=== PATIENT | male | born 1985 | race Caucasian/White ===

== ENCOUNTER 2023-09-13 13:30 | Outpatient (CLI) | payer MEDICARE, MEDICAID, SELFPAY | END 2023-09-13 13:31 | disposition home or self-care (01) | LOC: AMB 09-28 07:12 | PROVIDERS: PCP Family Medicine; Visit Provider Family Medicine | DX: J18.9 Pneumonia, unspecified organism (principal) | CPT/HCPCS: A0425; A0427; A0434 ==

== ENCOUNTER 2023-09-13 13:53 | Emergency (ER) | payer MEDICARE, MEDICAID, SELFPAY ==
[2023-09-13] VITALS (26 sets, daily range): BP systolic 84–128; BP diastolic 57–90; PULSE 83–100; RESP 12–28; TEMP 37–37.3; O2SAT 90–100; BMI 27.5
--- NOTE | 2023-09-13 14:04 | ED_ITS ---
HPI - General Adult General Time Seen by Provider: 14:04 Date Seen: 09/13/23 Chief complaint: Shortness of Breath/Dyspnea Stated complaint: Pneumonia Time Seen by Provider: 09/13/23 14:01 Source: patient, EMS and RN notes reviewed Mode of arrival: EMS History of Present Illness HPI narrative: Patient is a 38-year-old male from the [place] [facility] sent in by ambulance for coughing, hypoxia. EMS did bring him in, I was not present for EMS report but have reviewed nurse's notes and on and information obtained by EMS. Patient is not on chronic oxygen, was reported to be hypoxic. He is alert, not complaining of any baseline pain but when I do touch in he states it hurts wherever I touch him. Respiratory therapy is in evaluating when I am in. He is tachypneic, cheeks are flushed in he feels warm, have asked staff to recheck his temperature. Has a wet sounding cough. On review of his folder sent, he is full code. Active medications are adapalene gel for acne, b.i.d.. Benztropine 1 mg t.i.d. for drooling. Clotrimazole 1% cream b.i.d. to feet. Clozapine 250 mg at bedtime for psychosis. Clozapine 100 mg b.i.d. at 7:00 a.m. and 3:00 p.m. for pervasive behaviors. P.r.n. cough drops. Divalproex 250 mg at 3:30 p.m. for mood stability. Divalproex 5 mg, 2 tablets b.i.d. at 7:00 a.m. and 8:00 p.m. for mood stability. Fluticasone nasal spray daily. Guaifenesin p.r.n.. Haloperidol 5 mg b.i.d. p.r.n.. Ibuprofen p.r.n., loperamide p.r.n.. Loratadine 10 mg daily. Milk of magnesia p.r.n. mupirocin 2% ointment t.i.d. x5 days p.r.n.. MiraLax 17 g daily. Propranolol 40 mg t.i.d. for mood stability. Multivitamin daily. Related Data Home Medications Medication Instructions Recorded Confirmed benztropine 1 mg tablet 1 mg PO 08/04/22 08/04/22 clozapine 100 mg tablet 100 mg PO 08/04/22 08/04/22 clozapine 25 mg tablet 25 mg PO 08/04/22 08/04/22 divalproex 500 mg tablet,delayed mg PO 08/04/22 08/04/22 release fluticasone propionate 50 intranasal 08/04/22 08/04/22 mcg/actuation nasal spray,suspension propranolol 40 mg tablet 40 mg PO 08/04/22 08/04/22 clotrimazole 1 % topical cream 1 applic topical BID 09/13/23 09/13/23 (Antifungal (clotrimazole)) haloperidol 5 mg tablet 5 mg PO Q60M PRN 09/13/23 09/13/23 loratadine 10 mg tablet 10 mg PO DAILY 09/13/23 09/13/23 multivitamin with folic acid 400 1 tab PO DAILY 09/13/23 09/13/23 mcg tablet (Tab-A-Yosef) polyethylene glycol 3350 17 17 g PO DAILY 09/13/23 09/13/23 gram/dose oral powder Allergies Allergy/AdvReac Type Severity Reaction Status Date / Time tramadol Allergy Unknown Verified 09/13/23 17:23 Review of Systems Status of ROS: Reports: unobtainable due to medical condition and unobtainable due to mental status PFSH [facility] Social History Smoking Status: Never smoker How often do you have a drink containing alcohol: never AUDIT-C Alcohol total score: 0 Non-prescribed substance use: denies use Exam Const: Vital Signs, click to edit/add: Vital Signs - 24 hr 09/13/23 13:59 09/13/23 14:09 09/13/23 14:09 Temperature 98.6 F Pulse Rate Pulse Rate [Pulse Oximeter] 99 Respiratory Rate 28 H Blood Pressure Blood Pressure [Ri ght Upper Arm] 128/66 Pulse Oximetry 93 92 92 Oxygen Delivery Me thod Nasal Cannula Nasal Cannula Oxygen Flow Rate 4 4 Fraction of Inspir ed Oxygen 09/13/23 14:40 09/13/23 14:41 09/13/23 14:42 Temperature 99.2 F Pulse Rate 96 94 Pulse Rate [Pulse Oximeter] Respiratory Rate Blood Pressure 103/65 Blood Pressure [Ri ght Upper Arm] Pulse Oximetry 95 95 Oxygen Delivery Me thod Oxygen Flow Rate Fraction of Inspir ed Oxygen 09/13/23 14:45 09/13/23 15:00 09/13/23 15:00 Temperature Pulse Rate 95 95 Pulse Rate [Pulse Oximeter] Respiratory Rate Blood Pressure Blood Pressure [Ri ght Upper Arm] Pulse Oximetry 96 97 97 Oxygen Delivery Me thod High Flow Nasal Ca nnula Oxygen Flow Rate 15 Fraction of Inspir ed Oxygen 09/13/23 15:03 09/13/23 15:15 09/13/23 15:30 Temperature Pulse Rate 94 94 95 Pulse Rate [Pulse Oximeter] Respiratory Rate Blood Pressure Blood Pressure [Ri ght Upper Arm] Pulse Oximetry 97 97 96 Oxygen Delivery Me thod Oxygen Flow Rate Fraction of Inspir ed Oxygen 09/13/23 15:32 09/13/23 15:43 09/13/23 15:45 Temperature Pulse Rate 93 93 Pulse Rate [Pulse Oximeter] Respiratory Rate Blood Pressure 117/87 Blood Pressure [Ri ght Upper Arm] Pulse Oximetry 97 98 Oxygen Delivery Me thod Oxygen Flow Rate 15 Fraction of Inspir ed Oxygen 45 09/13/23 16:00 09/13/23 16:01 09/13/23 16:15 Temperature Pulse Rate 92 94 93 Pulse Rate [Pulse Oximeter] Respiratory Rate Blood Pressure 110/85 Blood Pressure [Ri ght Upper Arm] Pulse Oximetry 98 98 98 Oxygen Delivery Me thod Oxygen Flow Rate Fraction of Inspir ed Oxygen 09/13/23 16:30 09/13/23 16:32 09/13/23 16:45 Temperature Pulse Rate 94 96 100 Pulse Rate [Pulse Oximeter] Respiratory Rate Blood Pressure 113/90 H Blood Pressure [Ri ght Upper Arm] Pulse Oximetry 98 98 100 Oxygen Delivery Me thod Oxygen Flow Rate Fraction of Inspir ed Oxygen 09/13/23 16:46 09/13/23 16:52 09/13/23 16:53 Temperature Pulse Rate 93 84 83 Pulse Rate [Pulse Oximeter] Respiratory Rate Blood Pressure 96/57 L 84/59 L Blood Pressure [Ri ght Upper Arm] Pulse Oximetry 90 99 99 Oxygen Delivery Me thod Oxygen Flow Rate Fraction of Inspir ed Oxygen 09/13/23 17:25 09/13/23 17:26 09/13/23 17:27 Temperature Pulse Rate 83 85 Pulse Rate [Pulse Oximeter] Respiratory Rate Blood Pressure 93/59 L 90/59 L Blood Pressure [Ri ght Upper Arm] Pulse Oximetry 98 98 Oxygen Delivery Me thod Oxygen Flow Rate Fraction of Inspir ed Oxygen 09/13/23 17:30 Temperature Pulse Rate 84 Pulse Rate [Pulse Oximeter] Respiratory Rate Blood Pressure Blood Pressure [Ri ght Upper Arm] Pulse Oximetry 97 Oxygen Delivery Me thod Oxygen Flow Rate Fraction of Inspir ed Oxygen Patient is seen and looks flush, does attempt to talk to me, has a wet sounding cough quite frequently. Is very tachypneic, have estimated his respiratory rate by counting to be about 60 breaths per minute. Cheeks flushed, admit temperature was afebrile but will last staff to recheck. Mouth looks dry, no traumatic change. Neck without any masses. He has right sided rhonchi, left side normal. CV regular, no murmur, normal S1-S2, no S3-S4. Abdomen is soft right now, no organomegaly. No lower extremity edema noted. Skin elsewhere that was visualized without rash. Documenting provider has reviewed patient's vital signs: yes Course Course ED Course: Patient obviously has respiratory infection. He is newly hypoxic, is full code. Respiratory therapy is evaluating. He is on 4 L nasal cannula oxygen right now. Need to get a chest x-ray in full complement of labs. Nursing staff has collected the triple viral swab. He has had a history of pneumonia and pleural effusion before. Obviously concern here is for infectious respiratory infection, need to consider bacterial pneumonia, viral pathogens such as COVID and influenza, RSV. He is not in immediate need of intubation but with the hypoxia and his tachypnea, he will need to be monitored closely. Will initiate a L of IV fluids. Reevaluation(s) Time of Reevaluation #1: 14:51 Reevaluation #1: Reviewed patient's chest x-ray, do see pneumonia. Have reviewed his EKG, no prolonged QT interval. Will initiate 2 g IV Rocephin 5 her mg IV is a through my sin, believe all as lab work to be completed including blood cultures. Respiratory therapy is back to assist in airway management. Time of Reevaluation #2: 16:55 Reevaluation #2: Intubation has been completed. Please see anesthesia's note, did have them come assist. He indeed had a more difficult airway, had more crowding of his teeth, anterior airway. [place] scope was used. There were no complications. Post intubation he did get 100 mg IV ketamine to keep him completely sedated while he went to have his chest CT PE protocol. Respiratory therapy went with to assist in ventilation. A ketamine drip was started at 2 milligrams/kilos per hour. He is receiving a therapeutic dose of Lovenox, 80 mg IM. He will be transferred after his chest CT. He did have bilateral breath sounds, maintained oxygenation. He has been accepted by Dr. Akua Christy but actually spoke with Fer from the facility. They are aware that patient was being intubated. After the chest CT PE protocol is done, this physician has requested we transfer, EMS is awaiting transfer. Time of Reevaluation #3: 17:08 Reevaluation #3: Nursing staff called from CT, patient is waking up a bit. Will Re bolus with 100 mg IV ketamine again. Pharmacy is going over with the orders for titration of ketamine which is being used for post intubation management. Consultations Consultation #1: Did speak with Fer at [facility], reviewed the case. Did check on patient well she was on the phone, he is still quite tachypneic, using paradoxical abdominal breathing, still respiratory rate of 60s. He will be unit there. We are waiting a chest CT PE protocol and she and I have discussed that we will await for the full reading to come back before transfer as we might act on giving him no anticoagulants if positive. I did speak to someone from [place] as well but talked to [place] for full acceptance, likely closer as well. This is the only bed availability. Staff checked with [place], [place], [place], [place], [place], with seek a, laxity, no bed availability. There are no beds at [facility] or [facility] with regions are [facility]. They were 22 patient is on the wait list in the [facility] system. After the phone conversation, spoke with respiratory therapy and re-evaluated the patient. He has some mild wheezing in his right upper lobe, is very tachypneic, using paradoxical abdominal movement. He is on 45% oxygen, 15 L, the high-flow oxygen is not really helping him at all, he is oxygenating quite well in upper 90s with this. I have spoken to his POA whom is here, have discussed intubation. Would it went over risks and benefits. Both respiratory therapy and myself do feel that he needs intubation for impending respiratory demise. His work of breathing is not improving. Time: 16:20 Vital Signs Vital signs: Initial Vital Signs Temperature 98.6 F 09/13/23 13:59 Temperature Source Temporal Artery Scan 09/13/23 13:59 Pulse Rate 99 09/13/23 13:59 Pulse Rhythm Regular 09/13/23 13:59 Respiratory Rate 28 H 09/13/23 13:59 Blood Pressure 128/66 09/13/23 13:59 Blood Pressure Mean 86 09/13/23 13:59 Blood Pressure Position Sitting 09/13/23 13:59 Pulse Oximetry 93 09/13/23 13:59 Oxygen Delivery Method Nasal Cannula 09/13/23 13:59 Oxygen Flow Rate 4 09/13/23 13:59 Vital Signs Temperature 98.6 F 09/13/23 13:59 Pulse Rate 99 09/13/23 13:59 Respiratory Rate 28 H 09/13/23 13:59 Blood Pressure 128/66 09/13/23 13:59 Pulse Oximetry 93 09/13/23 13:59 Oxygen Delivery Method Nasal Cannula 09/13/23 13:59 Oxygen Flow Rate 4 09/13/23 13:59 Temperature 99.2 F 09/13/23 14:40 Pulse Rate 84 09/13/23 17:30 Respiratory Rate 28 H 09/13/23 13:59 Blood Pressure 90/59 L 09/13/23 17:26 Pulse Oximetry 97 09/13/23 17:30 Oxygen Delivery Method High Flow Nasal Cannula 09/13/23 15:00 Oxygen Flow Rate 15 09/13/23 15:43 Fraction of Inspired Oxygen 45 09/13/23 15:43 Medications Administered Medications: Generic Name Dose Route Start Last Admin Trade Name Freq PRN Reason Stop Dose Admin Ketamine HCl 500 mg/ Sodium 505 mls @ 71.01 mls/hr 09/13/23 17:45 09/13/23 16:49 Chloride IVPB 2 mg/kg/hr .TITRATE LEEANN 142.02 mls/hr Titration Protocol 1 MG/KG/HR Discontinued Medications Generic Name Dose Route Start Last Admin Trade Name Freq PRN Reason Stop Dose Admin Albuterol/Ipratropium 1 neb 09/13/23 16:30 09/13/23 17:46 Iprat-Albut 0.5-2.5 Mg/3 Ml Neb IH 09/13/23 16:31 Not Given ONCE ONE Dexamethasone 10 mg 09/13/23 16:30 09/13/23 17:45 Dexamethasone 10 Mg/Ml Inj IVP 09/13/23 16:31 Not Given ONCE ONE Enoxaparin Sodium 80 mg 09/13/23 16:37 09/13/23 17:28 Enoxaparin 80 Mg/0.8 Ml Inj SUBCUT 09/13/23 16:38 80 mg ONCE ONE Administration Fentanyl 50 mcg 09/13/23 17:46 09/13/23 16:45 Fentanyl 100 Mcg/2 Ml Inj IVP 09/13/23 17:47 50 mcg ONCE ONE Administration Sodium Chloride 1,000 mls @ 500 mls/hr 09/13/23 14:10 09/13/23 16:55 0.9 % Sodium Chloride 1000 Ml IV 09/13/23 16:09 0 mls/hr .Q2H LEEANN Infusion Ceftriaxone Sodium 2 gm/ 100 mls @ 200 mls/hr 09/13/23 14:50 09/13/23 15:50 Sodium Chloride IVPB 09/13/23 14:51 Infused ONCE ONE Infusion Azithromycin 500 mg/ Sodium 255 mls @ 255 mls/hr 09/13/23 14:50 09/13/23 16:55 Chloride IVPB 09/13/23 14:51 255 mls/hr ONCE ONE Infusion Piperacillin Sod/Tazobactam 100 mls @ 200 mls/hr 09/13/23 16:17 09/13/23 17:46 Sod 3.375 gm/ Sodium Chloride IVPB 09/13/23 16:18 200 mls/hr ONCE ONE Administration Ketamine HCl 100 mg 09/13/23 17:07 09/13/23 17:10 Ketamine Hcl 100 Mg/Ml Inj IVP 09/13/23 17:08 100 mg ONCE ONE Administration Ketamine HCl 100 mg 09/13/23 17:44 09/13/23 16:51 Ketamine Hcl 100 Mg/Ml Inj IVP 09/13/23 17:45 100 mg ONCE ONE Administration Midazolam HCl 2 mg 09/13/23 17:44 09/13/23 17:15 Midazolam Hcl 1 Mg/Ml Inj IVP 09/13/23 17:45 2 mg ONCE ONE Administration Propofol 150 mg 09/13/23 17:46 09/13/23 16:45 Propofol 10 Mg/Ml Inj IVP 09/13/23 17:47 150 mg ONCE ONE Administration Succinylcholine Chloride 100 mg 09/13/23 17:46 09/13/23 16:45 Succinylcholine 20 Mg/Ml Inj IVP 09/13/23 17:47 100 mg ONCE ONE Administration Medical Decision Making Lab Data Lab results reviewed: Yes I reviewed the patient's lab results Labs: Lab Results 09/13/23 09/13/23 Range/Units 13:54 14:35 WBC 11.14 H (4.50-11.00) K/uL RBC 4.72 (4.30-5.90) m/uL Hgb 14.9 (13.5-17.5) gm/dL Hct 44.7 (37.0-53.0) % MCV 95 (80-100) fL MCH 32 (26-34) pg MCHC 33 (32-36) gm/dL RDW Coeff of Laci 12.6 (11.5-15.5) % Plt Count 135 L (140-440) K/uL Neut % (Auto) 75.7 H (42.0-72.0) % Lymph % (Auto) 9.8 L (20-44) % [place] % (Auto) 12.7 H (0.0-11.0) % Eos % (Auto) 0.0 (0.0-7.0) % Baso % (Auto) 0.1 (0.0-3.0) % Neut # (Auto) 8.40 H (1.7-7.0) K/uL Lymph # (Auto) 1.10 (0.90-2.90) K/uL [place] # (Auto) 1.40 H (0.00-0.90) K/UL Eos # (Auto) 0.00 (0.00-0.50) K/uL Baso # (Auto) 0.00 (0.00-0.30) K/uL Abs Immat Gran (auto) 0.20 (0.00-0.30) K/uL Imm/Tot Granulo (auto) 1.7 % D-Dimer Quant (PE/DVT) 1.21 H (0.00-0.50) ug/ml VBG pH 7.377 (7.32-7.43) VBG pCO2 49 (40-50) mmHG VBG pO2 42.8 (25-47) mmHG VBG HCO3 29 H (21-28) mmol/L Sodium 145 (135-149) mmol/L Potassium 4.3 (3.6-5.1) mmol/L Chloride 106 (96-114) mmol/L Carbon Dioxide 27 (20-32) mmol/L Anion Gap 12 (7-15) mEq/L BUN 32 H (5-24) mg/dL Creatinine 1.0 (0.5-1.5) mg/dL Estimated Creat Clear 82.19 Estimated GFR 100 ml/min Glucose 122 H (60-115) mg/dL Calcium 9.6 (8.4-10.6) mg/dL Total Bilirubin 0.7 (0.1-1.5) mg/dL AST 43 H (12-35) U/L ALT 28 (4-50) U/L Alkaline Phosphatase 74 (40-150) U/L Troponin I < 0.01 L (0.01-0.04) ng/mL C-Reactive Protein 37.1 H (0.5-1.0) mg/dL Total Protein 7.4 (6.0-8.3) g/dL Albumin 4.2 (3.3-5.0) g/dL Procalcitonin 16.40 H (<0.50) ng/mL SARS-CoV-2 (PCR) Negative SARS-CoV-2 (Negative) Influenza Type A (PCR) Negative PCR FLU A (Negative) Influenza Type B (PCR) Negative PCR FLU B (Negative) RSV (PCR) POSITIVE PCR RSV A (Negative) Imaging Data Chest x-ray: Attestation: I have reviewed the pertinent imaging results. Radiologist's impression: Patient: MIR STEWART Facility:?[facility] Patient ID:?[id number] Site Patient ID:?[id number]. Site :?[id number] Study:?XRay Chest 1V PORTABLE-09/13/2023 2:24:57 PM Ordering Physician:Wale Kilpatrick Final Report: Indication: Cough, hypoxia Technique: Chest 1 view Comparison: Chest x-ray 10/02/2016 Findings/Impression: Cardiovascular and mediastinum: Heart size and vasculature are normal in caliber and appearance. Lungs and pleural space: Low lung volumes without pleural effusion or pneumothorax. Patchy opacities throughout the right lung consistent with pneumonia. Bones and soft tissues: No acute findings. Dictated by Randolph Marmolejo MD @ 09/13/2023 2:37:53 PM (Electronic Signature) CT scan - chest: Attestation: I have reviewed the pertinent imaging results. Radiologist's impression: Patient: MIR STEWART Facility:?[facility] Patient ID:?[id number] Site Patient ID:?[id number]. Site :?[id number] Study:?CT Chest Angio w/ 95cc Rertrc-754-0/10/2024 5:27:08 PM Ordering Physician:Wale Kilpatrick Final Report: INDICATION: Shortness of breath. TECHNIQUE: CT Pulmonary Angiogram examination was performed after the administration of 95 mL Isovue 370 contrast intravenously. COMPARISON: Same-day chest radiograph. FINDINGS: Lower neck: Visualized thyroid is unremarkable. Cardiovascular: Contrast opacification of the pulmonary arterial tree is adequate. Thoracic aorta is normal in caliber. Pulmonary artery is normal in caliber. No pulmonary embolus. No significant atherosclerotic calcifications. Heart size is normal. No right heart strain. No significant coronary arterial calcifications. Lungs: Patching focal consolidation along the right upper, middle and lower lobes. Indeterminate focus of masslike consolidation involving the right lung apex measuring 1.5 cm. Airways: Endotracheal tube in place. Aspirated debris layering within the trachea. Moderate peribronchial wall thickening with scattered mucoid impaction in the bilateral lower lobes. Pleura: No pleural effusions or pneumothorax. Lymph nodes: No mediastinal, hilar, or axillary adenopathy. Chest wall: Normal. Upper abdomen: Patulous esophagus with air-fluid level compatible with reflux. Visualized portions unremarkable. Bones: No acute osseous abnormalities. IMPRESSION: 1. Findings compatible with multifocal pneumonia. Query underlying aspiration pneumonia given the aspirated debris within the trachea and patulous esophagus. 2. There is a focus of masslike consolidation involving the right lung apex measuring 1.5 cm, cannot exclude a underlying neoplasm. Repeat CT upon resolution of symptoms in 6-8 weeks is advised to assess stability or improvement. 3. No pulmonary embolus. No CT evidence of right heart strain. Please note that all CT scans at this facility use dose modulation, iterative reconstruction, and/or weight-based dosing when appropriate to reduce radiation dose to as low as reasonably achievable. Dictated by Hector Brown MD @ 09/13/2023 6:05:14 PM (Electronic Signature) ECG Data Attestation: I personally reviewed and interpreted this ECG as follows: (Sinus rhythm, 97 beats per minute. Underlying artifact. QT corrected 406 milliseconds.) Prior ECG tracings: not available for review Critical Care Time Critical Care Time Critical Care Time: Yes Attestation: The patient required my highest level preparedness to intervene emergently and I personally spent this critical care time directly and personally managing the patient. This critical care time included: Obtaining a history; Examining the patient; Pulse oximetry; Ordering and reviewing of studies; Arranging urgent treatment with development of a management plan; Evaluation of patients response to treatment; Frequent reassessment discussions with other providers. This critical care time was performed to assess and manage the high probability of imminent life-threatening deterioration that could result in multiorgan failure. It was exclusive of separate billable procedures and treating other patients and teaching time. Total Critical Care Time in Minutes: 90 Discharge Plan Discharge Clinical Impression: Respiratory failure requiring intubation, Respiratory syncytial virus (RSV) Community acquired pneumonia Qualifiers: Laterality: right Patient Disposition: [facility]
--- NOTE | 2023-09-13 14:08 | CRLHL7_ITS ---
For Patients: As a result of the Century Cures Act, medical imaging exams and procedure reports are released immediately into your electronic medical record. You may view this report before your referring provider. If you have questions, please contact your health care provider. Indication: Cough, hypoxia Technique: Chest 1 view Comparison: Chest x-ray 10/02/2016 Findings/Impression: Cardiovascular and mediastinum: Heart size and vasculature are normal in caliber and appearance. Lungs and pleural space: Low lung volumes without pleural effusion or pneumothorax. Patchy opacities throughout the right lung consistent with pneumonia. Bones and soft tissues: No acute findings. Dictated by Randolph Marmolejo MD @ 09/13/2023 2:37:53 PM (Electronically Signed)
--- NOTE | 2023-09-13 14:11 | RESP.RT ---
Pt. seen in ED. RR 60 Spo2 94% on 3L BBS with crackles in RLL. Awaiting CXR, Labs. Suspect I will start HFNC.
[2023-09-13 14:40] LABS: PCR FLU A Negative PCR FLU A (Negative); PCR FLU B Negative PCR FLU B (Negative); PCR RSV POSITIVE PCR RSV (Negative); SARS PCR* Negative SARS-CoV-2 (Negative)
[2023-09-13 14:42] LABS: HCO3 VBG 29 mmol/L (21-28); PCO2 VBG 49 mmHG (40-50); PO2 VBG 42.8 mmHG (25-47); pH VBG 7.377 (7.32-7.43)
[2023-09-13 14:46] LABS: Basophils Percent Auto 0.1 % (0.0-3.0); Hematocrit 44.7 % (37.0-53.0); Hemoglobin* 14.9 gm/dL (13.5-17.5); Immature Granulocytes Pct Auto 1.7 %; Lymphocytes Percent Auto 9.8 % (20-44); Mean Corpuscular HGB Conc 33 gm/dL (32-36); Mean Corpuscular Hemoglobin 32 pg (26-34); Mean Corpuscular Volume 95 fL (80-100); Monocytes Percent Auto 12.7 % (0.0-11.0); Neutrophils Percent Auto 75.7 % (42.0-72.0); Platelet Count* 135 K/uL (140-440); RDW Coefficient of Variation % 12.6 % (11.5-15.5); Red Blood Count 4.72 m/uL (4.30-5.90); White Blood Count* 11.14 K/uL (4.50-11.00)
[2023-09-13 15:02] LABS: Slide Review Reflex No
[2023-09-13 15:10] LABS: Albumin* 4.2 g/dL (3.3-5.0); Chloride* 106 mmol/L (96-114)
[2023-09-13 15:11] LABS: Potassium* 4.3 mmol/L (3.6-5.1); Sodium* 145 mmol/L (135-149)
[2023-09-13 15:13] LABS: Anion Gap 12 mEq/L (7-15); Aspartate Amino Transferase* 43 U/L (12-35); Bilirubin Total* 0.7 mg/dL (0.1-1.5); Carbon Dioxide* 27 mmol/L (20-32); Est. Creatinine Clearance* 82.19; Estimated Glomerular Filt Rate 100 ml/min; Total Protein* 7.4 g/dL (6.0-8.3)
[2023-09-13 15:14] LABS: Alanine Aminotransferase* 28 U/L (4-50); Blood Urea Nitrogen* 32 mg/dL (5-24); Calcium* 9.6 mg/dL (8.4-10.6); Glucose* 122 mg/dL (60-115)
[2023-09-13 15:16] LABS: D Dimer Quantitative* 1.21 ug/ml (0.00-0.50)
[2023-09-13] MEDS: cefTRIAXone 2 GM in 0.9 % SODIUM CHLORIDE Mini-bag 100 ML IVPB (15:20)
[2023-09-13] MEDS: 0.9 % SODIUM CHLORIDE 1000 ml 1,000 ML 500 ML IV (15:20)
[2023-09-13 15:54] LABS: Troponin I* < 0.01 ng/mL (0.01-0.04)
[2023-09-13 16:07] LABS: Alkaline Phosphatase* 74 U/L (40-150); C Reactive Protein* 37.1 mg/dL (0.5-1.0)
--- NOTE | 2023-09-13 16:10 | CRLHL7_ITS ---
For Patients: As a result of the Century Cures Act, medical imaging exams and procedure reports are released immediately into your electronic medical record. You may view this report before your referring provider. If you have questions, please contact your health care provider. INDICATION: Shortness of breath. TECHNIQUE: CT Pulmonary Angiogram examination was performed after the administration of 95 mL Isovue 370 contrast intravenously. COMPARISON: Same-day chest radiograph. FINDINGS: Lower neck: Visualized thyroid is unremarkable. Cardiovascular: Contrast opacification of the pulmonary arterial tree is adequate. Thoracic aorta is normal in caliber. Pulmonary artery is normal in caliber. No pulmonary embolus. No significant atherosclerotic calcifications. Heart size is normal. No right heart strain. No significant coronary arterial calcifications. Lungs: Patching focal consolidation along the right upper, middle and lower lobes. Indeterminate focus of masslike consolidation involving the right lung apex measuring 1.5 cm. Airways: Endotracheal tube in place. Aspirated debris layering within the trachea. Moderate peribronchial wall thickening with scattered mucoid impaction in the bilateral lower lobes. Pleura: No pleural effusions or pneumothorax. Lymph nodes: No mediastinal, hilar, or axillary adenopathy. Chest wall: Normal. Upper abdomen: Patulous esophagus with air-fluid level compatible with reflux. Visualized portions unremarkable. Bones: No acute osseous abnormalities. IMPRESSION: 1. Findings compatible with multifocal pneumonia. Query underlying aspiration pneumonia given the aspirated debris within the trachea and patulous esophagus. 2. There is a focus of masslike consolidation involving the right lung apex measuring 1.5 cm, cannot exclude a underlying neoplasm. Repeat CT upon resolution of symptoms in 6-8 weeks is advised to assess stability or improvement. 3. No pulmonary embolus. No CT evidence of right heart strain. Please note that all CT scans at this facility use dose modulation, iterative reconstruction, and/or weight-based dosing when appropriate to reduce radiation dose to as low as reasonably achievable. Dictated by Hector Brown MD @ 09/13/2023 6:05:14 PM (Electronically Signed)
[2023-09-13] MEDS: AZITHROMYCIN 500 MG in 0.9 % SODIUM CHLORIDE 250 ml 250 ML 255 MG IVPB (16:23)
[2023-09-13] MEDS: fentaNYL 100 MCG/2 ML inj 50 MCG IVP (16:45)
[2023-09-13] MEDS: SUCCINYLCHOLINE 20 MG/ML INJ 100 MG IVP (16:45)
[2023-09-13] MEDS: PROPOFOL 10 MG/ML INJ 150 MG IVP (16:45)
[2023-09-13] MEDS: KETAMINE HCL 500 MG in 0.9 % SODIUM CHLORIDE 500 ML 500 ML 71.01 MG IVPB (16:48)
[2023-09-13] MEDS: KETAMINE HCL 100 MG/ML inj IVP ×2 (16:51→17:10)
--- NOTE | 2023-09-13 16:58 | ED.NURSE ---
Patient intubated at 16:47 size 7.0. Measures 21 at the incisors. See vitals tab for details. 16:45 50 mcg fentanyl, 150 mg propofol, 100 mg succ 16:47 Successful intubation 16:51 100 mg ketamine bolus 16:52 2 mg/kilo/hr ketamine drip started 16:[address] RT present and bagging patient.
--- NOTE | 2023-09-13 17:00 | PM.ANBPRC ---
PFSH PFS Social History Smoking Status: Never smoker How often do you have a drink containing alcohol: never AUDIT-C Alcohol total score: 0 Non-prescribed substance use: denies use Meds Home Medications and Allergies Home Medications Medication Instructions Recorded Confirmed Type benztropine 1 mg tablet 1 mg PO 08/04/22 08/04/22 History clozapine 100 mg tablet 100 mg PO 08/04/22 08/04/22 History clozapine 25 mg tablet 25 mg PO 08/04/22 08/04/22 History divalproex 500 mg tablet,delayed mg PO 08/04/22 08/04/22 History release fluticasone propionate 50 intranasal 08/04/22 08/04/22 History mcg/actuation nasal spray,suspension propranolol 40 mg tablet 40 mg PO 08/04/22 08/04/22 History clotrimazole 1 % topical cream 1 applic topical BID 09/13/23 09/13/23 History (Antifungal (clotrimazole)) haloperidol 5 mg tablet 5 mg PO Q60M PRN 09/13/23 09/13/23 History loratadine 10 mg tablet 10 mg PO DAILY 09/13/23 09/13/23 History multivitamin with folic acid 400 1 tab PO DAILY 09/13/23 09/13/23 History mcg tablet (Tab-A-Yosef) polyethylene glycol 3350 17 17 g PO DAILY 09/13/23 09/13/23 History gram/dose oral powder Allergies Allergy/AdvReac Type Severity Reaction Status Date / Time tramadol Allergy Unknown Verified 09/13/23 13:59 Results Labs Labs: Laboratory Results - last 24 hr 09/13/23 09/13/23 13:54 14:35 WBC 11.14 H RBC 4.72 Hgb 14.9 Hct 44.7 MCV 95 MCH 32 MCHC 33 RDW Coeff of Laci 12.6 Plt Count 135 L Neut % (Auto) 75.7 H Lymph % (Auto) 9.8 L [place] % (Auto) 12.7 H Eos % (Auto) 0.0 Baso % (Auto) 0.1 Neut # (Auto) 8.40 H Lymph # (Auto) 1.10 [place] # (Auto) 1.40 H Eos # (Auto) 0.00 Baso # (Auto) 0.00 Abs Immat Gran (auto) 0.20 Imm/Tot Granulo (auto) 1.7 D-Dimer Quant (PE/DVT) 1.21 H VBG pH 7.377 VBG pCO2 49 VBG pO2 42.8 VBG HCO3 29 H Sodium 145 Potassium 4.3 Chloride 106 Carbon Dioxide 27 Anion Gap 12 BUN 32 H Creatinine 1.0 Estimated Creat Clear 82.19 Estimated GFR 100 Glucose 122 H Calcium 9.6 Total Bilirubin 0.7 AST 43 H ALT 28 Alkaline Phosphatase 74 Troponin I < 0.01 L C-Reactive Protein 37.1 H Total Protein 7.4 Albumin 4.2 Procalcitonin 16.40 H SARS-CoV-2 (PCR) Negative SARS-CoV-2 Influenza Type A (PCR) Negative PCR FLU A Influenza Type B (PCR) Negative PCR FLU B RSV (PCR) POSITIVE PCR RSV A Vital Signs Vital Signs: Last Vital Signs Temp 99.2 F 09/13/23 14:40 Pulse 84 09/13/23 16:52 Resp 28 H 09/13/23 13:59 BP 84/59 L 09/13/23 16:52 Pulse Ox 99 09/13/23 16:52 O2 Del Method High Flow Nasal Cannula 09/13/23 15:00 O2 Flow Rate 15 09/13/23 15:43 FiO2 45 09/13/23 15:43 Weight: 70.307 kg Height: 160.02 cm Anesthesia Procedures Airway Patient Location: ED Urgency: emergent Date: 09/13/23 Time: 16:30 VISUAL MERCHANDISING ASSOCIATE: Govind Performed by: LYNN Preanesthetic Checklist: IV checked and monitors and equipment checked Indications for Airway Management: hypoxemia and respiratory failure Spontaneous Ventilation: present Preoxygenated: Yes Patient Position: other (supine) Mask Difficulty Assessment: 1 - vent by mask Final Airway Details: 7.0 oral ETT placed via Glidescope #3 head. 1 attempt, atraumatic. difficulty 3. 21cm at incisors secured with tube tamer. easy BMV. positive BBS and ETCO2. 150mg Propofol, 50 mcg Fentanyl, Succinylcholine 100 mg given IV. Sedated with ketamine infusion and bolus. SaO2 maintained throughout. Off to CT Final Airway Type: endotracheal airway Number of Attempts at Approach: 1 Dentition Unchanged: Yes
--- NOTE | 2023-09-13 17:09 | P.ANES_ITS ---
Anesthesia Charges Start Date/Time Anesthesia Start Date: 09/13/23 Anesthesia Start Time: 16:30 Stop Date/Time Anesthesia Stop Date: 09/13/23 Anesthesia Stop Time: 17:00 Summary Emergency: PROMOTIONAL MARKETING ANALYST
[2023-09-13] MEDS: MIDAZOLAM HCL 1 MG/ML inj 2 MG IVP (17:15)
[2023-09-13] MEDS: ENOXAPARIN 80 MG/0.8 ML INJ SUBCUT (17:28)
--- NOTE | 2023-09-13 17:32 | ED.NURSE ---
Versed 2mg given IVP @1712. #20G IV established in R FA. Pt tolerated CT well.
--- NOTE | 2023-09-13 17:33 | RESP.RT ---
Intubated by anesthesia with a 7.0 tube secured at 22 at the teeth. BBS very coarse decreased on Left. Sx for moderate amount of creamy sputum. Hand ventilated to and from CT scan. Turned over to EMS for vent management.
[2023-09-13] MEDS: PIPERACILLIN/TAZOBACTAM 3.375 GM in 0.9 % SODIUM CHLORIDE Mini-bag 100 ML IVPB (17:46)
--- NOTE | 2023-09-13 18:19 | ED.NURSE ---
Attempted to call report to [place], [place]. Gave [facility] ED number for callback.
--- NOTE | 2023-09-13 18:46 | ED.NURSE ---
Report given to [place] MARINA PORTER.
--- NOTE | 2023-09-13 20:23 | ED.NURSE ---
Update given to [facility] after-hours service.
== END 2023-09-13 17:38 | disposition short-term general hospital (02) ==
PROVIDERS: Emergency Provider Family Medicine; PCP Family Medicine
DX: J12.1 Respiratory syncytial virus pneumonia (principal); J96.00 Acute respiratory failure, unspecified whether with hypoxia or hypercapnia
CPT/HCPCS: 31500; 36415; 71045; 71275; 80053; 82803; 84145; 84484; 85025; 85379; 86140; 87040; 87631; 93005; 94761; 99140; 99285; 99291; 99292; J0330; J0456; J0696; J1650; J2250; J2543; J2704; J3010; J3490; J7030; J7050; Q9967

== ENCOUNTER 2023-09-13 17:17 | Outpatient (CLI) | payer MEDICARE, MEDICAID, SELFPAY | END 2023-09-13 17:18 | disposition home or self-care (01) | LOC: AMB 09-28 07:17 | PROVIDERS: PCP Family Medicine; Visit Provider Emergency Medicine Emergency Medical Services | DX: R06.03 Acute respiratory distress (principal); Z99.81 Dependence on supplemental oxygen | CPT/HCPCS: A0425; A0434 ==

== ENCOUNTER 2024-01-21 11:12 | Outpatient (CLI) | payer MEDICARE, MEDICAID, SELFPAY | END 2024-01-21 11:13 | disposition home or self-care (01) | LOC: AMB 01-25 10:09 | PROVIDERS: PCP Family Medicine; Visit Provider Family Medicine | DX: R41.82 Altered mental status, unspecified (principal) | CPT/HCPCS: A0425; A0429; A0434 ==

== ENCOUNTER 2024-01-21 11:43 | Emergency (ER) | payer MEDICARE, MEDICAID, SELFPAY ==
[2024-01-21] VITALS (28 sets, daily range): BP systolic 103–151; BP diastolic 65–97; PULSE 96–116; RESP 18–52; TEMP 38.4; O2SAT 62–100; BMI 28.9
--- NOTE | 2024-01-21 | XR_ITS ---
Patient: MIR STEWART Facility:?[facility] Patient ID:?[id number] Site Patient ID:?[id number] Site :?1985 Study:?XRay-Chest 1 VIEW PORTABLE-01/21/2024 12:56:27 PM Ordering Physician:LIEN Final Report: Indication: Post intubation TECHNIQUE: Portable AP chest. Three images. COMPARISON: 01/21/2024. FINDINGS: First image demonstrates new ETT tip in the proximal right mainstem bronchus with relative hypoinflation of the left lung. Subsequent 2 images demonstrate retraction of the ETT. Tip is 1 cm above the madhu on the final image. Slightly improved left lung aeration on this image. Dictated by Jesus Rivers MD @ 01/21/2024 1:32:20 PM Signed by:?Jesus Rivers MD @01/21/2024 1:32:20 PM (Electronic Signature)
--- NOTE | 2024-01-21 11:45 | ED.GENADULT ---
HPI - General Adult General Time Seen by Provider: 11:45 Date Seen: 01/21/24 Chief complaint: Shortness of Breath/Dyspnea Stated complaint: Respiratory infection Time Seen by Provider: 01/21/24 11:45 Source: patient, EMS, RN notes reviewed and old records reviewed Mode of arrival: EMS Limitations: no limitations History of Present Illness HPI narrative: 38-year-old male with developmental delay here from [employer] [facility] with respiratory distress. Staff who provides history today says patient woke up with some nasal congestion, a breakfast and went back to bed. Has developed progressive weakness, cough, breathing difficulty since then. Related Data Home Medications Medication Instructions Recorded Confirmed benztropine 1 mg tablet 1 mg PO 08/04/22 11/23/23 clozapine 100 mg tablet 100 mg PO 08/04/22 11/23/23 clozapine 25 mg tablet 25 mg PO 08/04/22 11/23/23 fluticasone propionate 50 intranasal 08/04/22 11/23/23 mcg/actuation nasal spray,suspension propranolol 40 mg tablet 40 mg PO 08/04/22 11/23/23 clotrimazole 1 % topical cream 1 applic topical BID 09/13/23 11/23/23 (Antifungal (clotrimazole)) loratadine 10 mg tablet 10 mg PO DAILY 09/13/23 11/23/23 multivitamin with folic acid 400 1 tab PO DAILY 09/13/23 11/23/23 mcg tablet (Tab-A-Yosef) polyethylene glycol 3350 17 17 g PO DAILY 09/13/23 11/23/23 gram/dose oral powder acetaminophen 500 mg capsule 500 mg PO Q6H PRN 11/23/23 11/23/23 clotrimazole 1 % topical cream 1 applic topical BID PRN 11/23/23 11/23/23 divalproex 500 mg tablet,delayed mg PO BID 11/23/23 11/23/23 release docusate sodium 100 mg capsule 100 mg PO BID 11/23/23 11/23/23 ibuprofen 200 mg tablet 200 mg PO Q6H PRN 11/23/23 11/23/23 loperamide 2 mg capsule 2 mg PO Q6H PRN 11/23/23 11/23/23 magnesium hydroxide 400 mg/5 mL 5 ml PO QDAY PRN 11/23/23 11/23/23 oral suspension (Milk of Magnesia) Allergies Allergy/AdvReac Type Severity Reaction Status Date / Time tramadol Allergy Unknown Verified 01/21/24 13:40 PFSH PFS Social History Smoking Status: Never smoker How often do you have a drink containing alcohol: never AUDIT-C Alcohol total score: 0 Non-prescribed substance use: denies use Exam Narrative: Exam Narrative: General: Well-developed and well-nourished, tachypneic with noisy respirations Head: Atraumatic and normocephalic Eyes: Pupils are equal reactive, extraocular motions intact, conjunctiva clear ENT: External nose and ears are normal, posterior pharynx without erythema or exudate Neck: No midline cervical tenderness, full spontaneous range of motion the neck, trachea midline, no adenopathy Heart: Tachycardic but regular Lungs: Coarse upper airway breath sounds, bilateral crackles worse on the right, tachypnea with accessory muscle use Abdomen: Soft, nontender, nondistended with active bowel sounds Musculoskeletal: No tenderness, deformity, or edema Neurologic: Awake, alert, no gross focal neurologic deficits, cranial nerves intact as tested Psych: Mood and affect are appropriate Skin: No rashes Const: Vital Signs, click to edit/add: Vital Signs - 24 hr 01/21/24 11:52 01/21/24 11:54 01/21/24 11:55 Temperature 101.2 F H Pulse Rate 109 H 108 H Pulse Rate [Apical ] 109 H Respiratory Rate 52 H Blood Pressure 134/91 H Blood Pressure [Ri ght Upper Arm] 134/65 Pulse Oximetry 90 90 89 Oxygen Delivery Me thod Room Air Oxygen Flow Rate Fraction of Inspir ed Oxygen 01/21/24 12:06 01/21/24 12:07 01/21/24 12:15 Temperature Pulse Rate 109 H 110 H Pulse Rate [Apical ] Respiratory Rate Blood Pressure 134/65 Blood Pressure [Ri ght Upper Arm] Pulse Oximetry 89 90 Oxygen Delivery Me thod Oxygen Flow Rate Fraction of Inspir ed Oxygen 100 01/21/24 12:15 01/21/24 12:21 01/21/24 12:22 Temperature Pulse Rate 108 H 111 H 110 H Pulse Rate [Apical ] Respiratory Rate Blood Pressure 127/85 Blood Pressure [Ri ght Upper Arm] Pulse Oximetry 93 93 93 Oxygen Delivery Me thod High Flow Nasal Ca nnula High Flow Nasal Ca nnula High Flow Nasal Ca nnula Oxygen Flow Rate 30 30 30 Fraction of Inspir ed Oxygen 100 100 100 01/21/24 12:26 01/21/24 12:30 01/21/24 12:32 Temperature Pulse Rate 116 H 108 H 109 H Pulse Rate [Apical ] Respiratory Rate Blood Pressure 128/79 115/81 Blood Pressure [Ri ght Upper Arm] Pulse Oximetry 93 97 89 Oxygen Delivery Me thod High Flow Nasal Ca nnula High Flow Nasal Ca nnula High Flow Nasal Ca nnula Oxygen Flow Rate 30 30 30 Fraction of Inspir ed Oxygen 100 100 100 01/21/24 12:35 01/21/24 12:37 01/21/24 12:41 Temperature Pulse Rate 105 H 105 H Pulse Rate [Apical ] Respiratory Rate Blood Pressure 151/97 H 133/84 Blood Pressure [Ri ght Upper Arm] Pulse Oximetry 82 L 82 L Oxygen Delivery Me thod High Flow Nasal Ca nnula High Flow Nasal Ca nnula Oxygen Flow Rate 30 30 30 Fraction of Inspir ed Oxygen 100 100 100 01/21/24 12:45 01/21/24 12:46 01/21/24 12:47 Temperature Pulse Rate 103 H 101 H 104 H Pulse Rate [Apical ] Respiratory Rate 20 22 19 Blood Pressure 147/94 H 139/91 H Blood Pressure [Ri ght Upper Arm] Pulse Oximetry 62 L 63 L 95 Oxygen Delivery Me thod Intubated Intubated Intubated Oxygen Flow Rate Fraction of Inspir ed Oxygen 50 50 50 01/21/24 12:51 01/21/24 12:55 01/21/24 12:56 Temperature Pulse Rate 102 H 100 Pulse Rate [Apical ] Respiratory Rate 20 18 Blood Pressure 110/72 110/71 Blood Pressure [Ri ght Upper Arm] Pulse Oximetry 100 97 100 Oxygen Delivery Me thod Intubated Intubated Intubated Oxygen Flow Rate Fraction of Inspir ed Oxygen 50 50 50 01/21/24 12:57 01/21/24 13:00 01/21/24 13:01 Temperature Pulse Rate 101 H 100 100 Pulse Rate [Apical ] Respiratory Rate 18 18 18 Blood Pressure 107/70 Blood Pressure [Ri ght Upper Arm] Pulse Oximetry 100 100 99 Oxygen Delivery Me thod Intubated Intubated Intubated Oxygen Flow Rate Fraction of Inspir ed Oxygen 50 50 50 01/21/24 13:06 01/21/24 13:11 01/21/24 13:15 Temperature Pulse Rate 100 98 96 Pulse Rate [Apical ] Respiratory Rate 18 18 18 Blood Pressure 115/75 112/73 Blood Pressure [Ri ght Upper Arm] Pulse Oximetry 96 97 98 Oxygen Delivery Me thod Intubated Intubated Intubated Oxygen Flow Rate Fraction of Inspir ed Oxygen 50 50 50 01/21/24 13:16 01/21/24 13:21 01/21/24 14:01 Temperature Pulse Rate 96 96 Pulse Rate [Apical ] Respiratory Rate 18 18 18 Blood Pressure 110/73 103/70 Blood Pressure [Ri ght Upper Arm] Pulse Oximetry 98 98 Oxygen Delivery Me thod Intubated Intubated Oxygen Flow Rate Fraction of Inspir ed Oxygen 50 50 Course Course ED Course: Patient seen and examined calmer been reviewed prior emergency department visit from September 13 when patient was brought in with shortness of breath, diagnosed with community-acquired pneumonia and was intubated at that time. Patient seen and examined here, presents with congestion and increased breathing difficulty, generalized weakness. On initial exam, tachypneic in the 40s with oxygen saturation 90% on nasal cannula, coarse breath sounds. Request patient be moved into a critical care room, fluids, DuoNeb and BiPAP will be initiated, patient has high likelihood of need for airway intervention. Reevaluation(s) Time of Reevaluation #1: 12:16 Reevaluation #1: Discussed care with respiratory therapy, due to baseline cognitive delay, patient is high risk for BiPAP. Will initiate high-flow for pre oxygenation, anticipate intubation. Patient is febrile and tachycardic, likely septic related to pulmonary source. Zosyn and vancomycin ordered for concern for aspiration, hospital-acquired pneumonia. Plan for intubation and transfer. Contacted [facility] for transfer. Time of Reevaluation #2: 12:48 Reevaluation #2: Patient intubated for respiratory failure. Difficult intubation, 1st attempt by me unsuccessful, first attempt by VICE PRESIDENT PAYER unsuccessful, good visualization of the cords on both attempts but unable to pass the tube. Patient was reaction made between attempts by [id number] with maximum saturation 82%. Tube placed with with fiberoptic scope. Initially poor breath sounds on left and xray independently interpreted by me shows decreased aeration on the left with right mainstem intubation. Tube pulled back three centimeters with improved oxygen saturation and EtCO2. After intubation, end-tidal CO2 did get as high as 80 but when ET tube was pulled back, oxygen saturation immediately to 100% and end-tidal CO2 improved. Patient accepted by Dr. Garcia to [facility] with up to 8 hour delay. Will check for other facilities. Labs ordered and independently interpreted by me with leukocytosis site blood cell count 12.48, hemoglobin 16.6, lactate 2, venous blood gas with pCO2 54, respiratory panel negative. Time of Reevaluation #3: 13:46 Reevaluation #3: Patient accepted for immediate transfer to [facility], given critical condition and limited resources in [place] [facility], will be transferred as soon as possible. CT PE study and panel interpreted by me does not demonstrate large central pulmonary embolism does demonstrate bilateral diffuse infiltrates consistent with multifocal pneumonia. Patient remains stable on ventilator with propofol drip. Did develop some mild redness in the right antecubital IV with vancomycin infusion, this resolved quickly, Benadryl was given and vancomycin restarted, will continue close observation of this area. Vital Signs Vital signs: Initial Vital Signs Pulse Rate 109 H 01/21/24 11:52 Pulse Oximetry 90 01/21/24 11:52 Vital Signs Pulse Rate 109 H 01/21/24 11:52 Pulse Oximetry 90 01/21/24 11:52 Temperature 101.2 F H 01/21/24 11:55 Pulse Rate 96 01/21/24 13:21 Respiratory Rate 18 01/21/24 14:01 Blood Pressure 103/70 01/21/24 13:21 Pulse Oximetry 98 01/21/24 13:21 Oxygen Delivery Method Intubated 01/21/24 13:21 Oxygen Flow Rate 30 01/21/24 12:41 Fraction of Inspired Oxygen 50 01/21/24 13:21 Medications Administered Medications: Discontinued Medications Generic Name Dose Route Start Last Admin Trade Name Freq PRN Reason Stop Dose Admin Albuterol/Ipratropium 1 neb 01/21/24 12:02 01/21/24 13:23 Iprat-Albut 0.5-2.5 Mg/3 Ml Neb 01/21/24 12:03 Not Given ONCE ONE Piperacillin Sod/Tazobactam 100 mls @ 100 mls/hr 01/21/24 12:15 01/21/24 13:23 Sod 3.375 gm/ Sodium Chloride IVPB 01/21/24 12:16 Infused ONCE ONE Infusion Medical Decision Making Lab Data Labs: Lab Results 01/21/24 01/21/24 Range/Units 12:14 12:16 WBC 12.48 H (4.50-11.00) K/uL RBC 5.31 (4.30-5.90) m/uL Hgb 16.6 (13.5-17.5) gm/dL Hct 49.7 (37.0-53.0) % MCV 94 (80-100) fL MCH 31 (26-34) pg MCHC 33 (32-36) gm/dL RDW Coeff of Laci 12.1 (11.5-15.5) % Plt Count 147 (140-440) K/uL Neut % (Auto) 74.5 H (42.0-72.0) % Lymph % (Auto) 12.6 L (20-44) % [place] % (Auto) 10.7 (0.0-11.0) % Eos % (Auto) 0.7 (0.0-7.0) % Baso % (Auto) 0.3 (0.0-3.0) % Neut # (Auto) 9.30 H (1.7-7.0) K/uL Lymph # (Auto) 1.60 (0.90-2.90) K/uL [place] # (Auto) 1.30 H (0.00-0.90) K/UL Eos # (Auto) 0.10 (0.00-0.50) K/uL Baso # (Auto) 0.00 (0.00-0.30) K/uL Abs Immat Gran (auto) 0.10 (0.00-0.30) K/uL Imm/Tot Granulo (auto) 1.2 % VBG pH 7.344 (7.32-7.43) VBG pCO2 54 H (40-50) mmHG VBG pO2 30.8 (25-47) mmHG VBG HCO3 29 H (21-28) mmol/L Sodium 140 (135-149) mmol/L Potassium 5.0 (3.6-5.1) mmol/L Chloride 104 (96-114) mmol/L Carbon Dioxide 29 (20-32) mmol/L Anion Gap 7 (7-15) mEq/L BUN 17 (5-24) mg/dL Creatinine 0.9 (0.5-1.5) mg/dL Estimated Creat Clear 91.32 Estimated GFR 114 ml/min Glucose 124 H (60-115) mg/dL Lactate 2.0 H (0.5-1.9) mmol/L Calcium 9.2 (8.4-10.6) mg/dL Magnesium 2.1 (1.5-2.6) mg/dL NT-Pro-B Natriuret Pep 95 pg/mL SARS-CoV-2 (PCR) Negative SARS-CoV-2 (Negative) Influenza Type A (PCR) Negative PCR FLU A (Negative) Influenza Type B (PCR) Negative PCR FLU B (Negative) RSV (PCR) Negative PCR RSV (Negative) Critical Care Time Critical Care Time Critical Care Time: Yes (Respiratory failure, sepsis) Attestation: The patient required my highest level preparedness to intervene emergently and I personally spent this critical care time directly and personally managing the patient. This critical care time included: Obtaining a history; Examining the patient; Pulse oximetry; Ordering and reviewing of studies; Arranging urgent treatment with development of a management plan; Evaluation of patients response to treatment; Frequent reassessment discussions with other providers. This critical care time was performed to assess and manage the high probability of imminent life-threatening deterioration that could result in multiorgan failure. It was exclusive of separate billable procedures and treating other patients and teaching time. Total Critical Care Time in Minutes: 120 Discharge Plan Discharge Clinical Impression: Community acquired pneumonia, Acute hypoxemic respiratory failure Patient Disposition: [facility] Condition: Guarded Prescriptions: No Action benztropine 1 mg tablet 1 mg PO propranolol 40 mg tablet 40 mg PO clozapine 25 mg tablet 25 mg PO clozapine 100 mg tablet 100 mg PO fluticasone propionate 50 mcg/actuation spray,suspension intranasal divalproex 500 mg tablet,delayed release (DR/EC) PO BID docusate sodium 100 mg capsule 100 mg PO BID acetaminophen 500 mg capsule 500 mg PO Q6H PRN ibuprofen 200 mg tablet 200 mg PO Q6H PRN loperamide 2 mg capsule 2 mg PO Q6H PRN magnesium hydroxide [Milk of Magnesia] 400 mg/5 mL suspension 5 ml PO QDAY PRN clotrimazole 1 % cream 1 applic topical BID PRN clotrimazole [Antifungal (clotrimazole)] 1 % cream 1 applic topical BID polyethylene glycol 3350 17 gram/dose powder 17 g PO DAILY loratadine 10 mg tablet 10 mg PO DAILY multivitamin with folic acid [Tab-A-Yosef] 400 mcg tablet 1 tab PO DAILY Stand Alone Forms: [facility] Info Instructions Procedures Intubation Pre procedure diagnosis: Respiratory failure Post procedure diagnosis: Same Name of person performing procedure: Don Weston Sedative: Ketamine Mg Given: 100 paralytic: Rocuronium Mg Given: 100 Laryngoscope: fiber optic video scope Assist Device Used: fiber optic device ET Tube Size: 7.5 ET Tube Uncuffed: Yes Tube Secured Depth (cm): 23 Tube Placement Confirmation: visualized tube passing through cords and equal breath sounds bilaterally (Breath sounds diminished on the left and x-ray with mainstem intubation, endotracheal tube pulled back 3 cm) Estimated blood loss (if any): none Intubation Complications: difficult intubation Patient Tolerated Procedure: well Additional Comments: Attempt 1. By Dr. Weston with cords well visualized but unable to pass tube, oxygen to 72%, BVM restarted with oral airway placed Attempt 2. By VICE PRESIDENT PAYER with cords well visualized but unable to pass tube, oxygen saturation to 77%, BVM Attempt 3. Bt LYNN and Dr. Weston using fiberoptic scope, 7.5 tube successfully placed.
--- NOTE | 2024-01-21 12:02 | XR_ITS ---
Patient: MIR STEWART Facility:?[facility] Patient ID:?[id number] Site Patient ID:?[id number]. Site :?1985 Study:?XRay-Chest PORTABLE-01/21/2024 12:16:29 PM Ordering Physician:?DR. PIMENTEL Final Report: INDICATION: Dyspnea. TECHNIQUE: Chest 1 views. COMPARISON: December 03, 2023. FINDINGS: Cardiovascular and mediastinum: Heart size and vasculature are normal in caliber and appearance. Lungs and pleural spaces: Low lung volumes with interstitial prominence. No sign of infiltrate or mass. No sign of pleural effusion. No pneumothorax. Bones and soft tissues: No significant findings. IMPRESSION: Low lung volumes with interstitial prominence, possibly infectious. No large focal consolidations. Dictated by Surinder Scherer MD @ 01/21/2024 12:44:48 PM Signed by:?Surinder Scherer MD @01/21/2024 12:44:48 PM (Electronic Signature)
[2024-01-21] MEDS: 0.9 % SODIUM CHLORIDE 1000 ml 1,000 ML IV (12:20)
[2024-01-21] MEDS: ROCURONIUM BROMIDE 10 MG/ML inj 100 MG IV (12:30)
[2024-01-21] MEDS: KETAMINE HCL 100 MG/ML inj IVP (12:30)
[2024-01-21] MEDS: PIPERACILLIN/TAZOBACTAM 3.375 GM in 0.9 % SODIUM CHLORIDE Mini-bag 100 ML IVPB (12:30)
[2024-01-21 12:43] LABS: HCO3 VBG 29 mmol/L (21-28); PCO2 VBG 54 mmHG (40-50); PO2 VBG 30.8 mmHG (25-47); pH VBG 7.344 (7.32-7.43)
[2024-01-21 12:46] LABS: Basophils Percent Auto 0.3 % (0.0-3.0); Eosinophils Percent Auto 0.7 % (0.0-7.0); Hematocrit 49.7 % (37.0-53.0); Hemoglobin* 16.6 gm/dL (13.5-17.5); Immature Granulocytes Pct Auto 1.2 %; Lymphocytes Percent Auto 12.6 % (20-44); Mean Corpuscular HGB Conc 33 gm/dL (32-36); Mean Corpuscular Hemoglobin 31 pg (26-34); Mean Corpuscular Volume 94 fL (80-100); Monocytes Percent Auto 10.7 % (0.0-11.0); Neutrophils Percent Auto 74.5 % (42.0-72.0); Platelet Count* 147 K/uL (140-440); RDW Coefficient of Variation % 12.1 % (11.5-15.5); Red Blood Count 5.31 m/uL (4.30-5.90); White Blood Count* 12.48 K/uL (4.50-11.00)
[2024-01-21 12:49] LABS: Slide Review Reflex No
[2024-01-21] MEDS: propofoL 1,000 MG/100 ML ML 11.09 MG IVPB (12:50)
[2024-01-21 12:58] LABS: Chloride* 104 mmol/L (96-114); Sodium* 140 mmol/L (135-149)
[2024-01-21 13:01] LABS: PCR FLU A Negative PCR FLU A (Negative); PCR FLU B Negative PCR FLU B (Negative); PCR RSV Negative PCR RSV (Negative); SARS PCR* Negative SARS-CoV-2 (Negative)
[2024-01-21 13:01] LABS: Anion Gap 7 mEq/L (7-15); Blood Urea Nitrogen* 17 mg/dL (5-24); Calcium* 9.2 mg/dL (8.4-10.6); Carbon Dioxide* 29 mmol/L (20-32); Creatinine* 0.9 mg/dL (0.5-1.5); Est. Creatinine Clearance* 91.32; Estimated Glomerular Filt Rate 114 ml/min; Glucose* 124 mg/dL (60-115)
[2024-01-21 13:02] LABS: Magnesium* 2.1 mg/dL (1.5-2.6)
[2024-01-21 13:11] LABS: NT Pro B Type NatriureticPept* 95 pg/mL
--- NOTE | 2024-01-21 13:17 | CT_ITS ---
Patient: MIR STEWART Facility:?[facility] Patient ID:?[id number] Site Patient ID:?[id number] Site :?1985 Study:?CT-Chest PE 95CC ISOVUE 370-01/21/2024 1:41:10 PM Ordering Physician:ABEBA Final Report: INDICATION: Dyspnea hypoxia TECHNIQUE: CT chest with 95 mL Isovue 370 COMPARISON: CT 10/04/2023 FINDINGS: Lungs and pleura: Bilateral reticular nodular tree-in-bud opacities diffusely probably infectious/inflammatory. Heart and vasculature: Heart size is normal. Thoracic aorta and pulmonary artery are normal in caliber. No pulmonary emboli. Lymph nodes/mediastinum: Mildly prominent mediastinal hilar nodes which could be reactive. Chest wall: No masses. Upper abdomen: No significant findings. Bones: Unremarkable for age. IMPRESSION: 1. No pulmonary emboli. Diffuse bilateral reticular nodular tree-in-bud opacities which likely is infectious/inflammatory. Please note that all CT scans at this facility use dose modulation, iterative reconstruction, and/or weight-based dosing when appropriate to reduce radiation dose to as low as reasonably achievable. Dictated by Kimberley Dailey MD @ 01/21/2024 2:23:02 PM Signed by:?Kimberley Dailey MD @01/21/2024 2:23:02 PM (Electronic Signature)
[2024-01-21] MEDS: diphenhydrAMINE 50 MG/ML inj 25 MG IVP (13:50)
--- NOTE | 2024-01-21 15:00 | ED.NURSE ---
Report given to Woodward WILNER
[2024-01-21 15:33] LABS: Troponin, Point-of-Care* 0.01 ng/ml (0.01-0.04)
--- NOTE | 2024-01-22 18:58 | ED.NURSE ---
Called [facility] to report positive blood cultures, gram + cocci to RN on floor.
== END 2024-01-21 14:30 | disposition home or self-care (01) ==
PROVIDERS: Emergency Provider Family Medicine; PCP Family Medicine
DX: J18.9 Pneumonia, unspecified organism (principal); J96.01 Acute respiratory failure with hypoxia
CPT/HCPCS: 31500; 36415; 71045; 71275; 80048; 82803; 83605; 83735; 83880; 84484; 85025; 87040; 87186; 87631; 93005; 96365; 96366; 96375; 99285; 99291; 99292; J1200; J2543; J2704; J3370; J3490; J7030; Q9967

== ENCOUNTER 2024-01-21 13:50 | Outpatient (CLI) | payer MEDICARE, MEDICAID, SELFPAY | END 2024-01-21 13:51 | disposition home or self-care (01) | LOC: AMB 01-25 10:21 | PROVIDERS: PCP Family Medicine; Visit Provider Family Medicine | DX: J18.9 Pneumonia, unspecified organism (principal); J96.91 Respiratory failure, unspecified with hypoxia | CPT/HCPCS: A0425; A0434 ==

== ENCOUNTER 2024-09-05 16:12 | Outpatient (CLI) | payer MEDICARE, MEDICAID, SELFPAY ==
[2024-09-05 16:31] LABS: Basophils Absolute Auto 0.05 K/uL (0.00-0.30); Basophils Percent Auto 0.5 % (0.0-3.0); Eosinophils Absolute Auto 0.62 K/uL (0.00-0.50); Eosinophils Percent Auto 6.5 % (0.0-7.0); Hematocrit 47.7 % (37.0-53.0); Hemoglobin* 16.5 gm/dL (13.5-17.5); Immature Granulocytes Abs Auto 0.35 K/uL (0.00-0.30); Immature Granulocytes Pct Auto 3.7 %; Lymphocytes Absolute Auto 3.31 K/uL (0.90-2.90); Lymphocytes Percent Auto 34.6 % (20-44); Mean Corpuscular HGB Conc 35 gm/dL (32-36); Mean Corpuscular Hemoglobin 32 pg (26-34); Mean Corpuscular Volume 91 fL (80-100); Monocytes Percent Auto 10.8 % (0.0-11.0); Neutrophils Absolute Auto 4.22 K/uL (1.7-7.0); Neutrophils Percent Auto 43.9 % (42.0-72.0); Platelet Count* 191 K/uL (140-440); RDW Coefficient of Variation % 12.1 % (11.5-15.5); Red Blood Count 5.24 m/uL (4.30-5.90); White Blood Count* 9.58 K/uL (4.50-11.00)
[2024-09-05 16:40] LABS: Slide Review Reflex No
== END 2024-09-05 16:13 | disposition home or self-care (01) ==
PROVIDERS: PCP Family Medicine; Visit Provider Nurse Practitioner Psychiatric/Mental Health
DX: Z79.899 Other long term (current) drug therapy (principal)
CPT/HCPCS: 36415; 85025

== ENCOUNTER 2024-10-01 15:27 | Outpatient (CLI) | payer MEDICARE, MEDICAID, SELFPAY ==
[2024-10-01 16:13] LABS: Basophils Absolute Auto 0.07 K/uL (0.00-0.30); Basophils Percent Auto 0.7 % (0.0-3.0); Eosinophils Absolute Auto 0.58 K/uL (0.00-0.50); Eosinophils Percent Auto 5.5 % (0.0-7.0); Hematocrit 46.5 % (37.0-53.0); Hemoglobin* 15.8 gm/dL (13.5-17.5); Immature Granulocytes Abs Auto 0.21 K/uL (0.00-0.30); Lymphocytes Absolute Auto 2.75 K/uL (0.90-2.90); Lymphocytes Percent Auto 26.3 % (20-44); Mean Corpuscular HGB Conc 34 gm/dL (32-36); Mean Corpuscular Hemoglobin 31 pg (26-34); Mean Corpuscular Volume 91 fL (80-100); Monocytes Percent Auto 10.2 % (0.0-11.0); Neutrophils Absolute Auto 5.78 K/uL (1.7-7.0); Neutrophils Percent Auto 55.3 % (42.0-72.0); Platelet Count* 174 K/uL (140-440); RDW Coefficient of Variation % 12.4 % (11.5-15.5); Red Blood Count 5.09 m/uL (4.30-5.90); White Blood Count* 10.46 K/uL (4.50-11.00)
[2024-10-01 16:22] LABS: Slide Review Reflex No
== END 2024-10-01 15:28 | disposition home or self-care (01) ==
PROVIDERS: PCP Family Medicine; Visit Provider Nurse Practitioner Psychiatric/Mental Health
DX: Z79.899 Other long term (current) drug therapy (principal)
CPT/HCPCS: 36415; 85025

== ENCOUNTER 2024-10-30 10:00 | Outpatient (CLI) | payer MEDICARE, MEDICAID, SELFPAY ==
[2024-10-30 10:21] LABS: Basophils Absolute Auto 0.04 K/uL (0.00-0.30); Basophils Percent Auto 0.4 % (0.0-3.0); Eosinophils Absolute Auto 0.29 K/uL (0.00-0.50); Eosinophils Percent Auto 3.1 % (0.0-7.0); Hematocrit 46.6 % (37.0-53.0); Hemoglobin* 15.7 gm/dL (13.5-17.5); Immature Granulocytes Abs Auto 0.67 K/uL (0.00-0.30); Immature Granulocytes Pct Auto 7.3 %; Lymphocytes Absolute Auto 2.55 K/uL (0.90-2.90); Lymphocytes Percent Auto 27.6 % (20-44); Mean Corpuscular HGB Conc 34 gm/dL (32-36); Mean Corpuscular Hemoglobin 31 pg (26-34); Mean Corpuscular Volume 93 fL (80-100); Monocytes Percent Auto 10.1 % (0.0-11.0); Neutrophils Absolute Auto 4.75 K/uL (1.7-7.0); Neutrophils Percent Auto 51.5 % (42.0-72.0); Platelet Count* 219 K/uL (140-440); RDW Coefficient of Variation % 12.4 % (11.5-15.5); White Blood Count* 9.23 K/uL (4.50-11.00)
[2024-10-30 11:40] LABS: Slide Review Reflex Yes
[2024-10-30 12:20] LABS: Slide Review Acceptable Review (Acceptable)
== END 2024-10-30 10:01 | disposition home or self-care (01) ==
PROVIDERS: PCP Family Medicine; Visit Provider Nurse Practitioner Psychiatric/Mental Health
DX: Z79.899 Other long term (current) drug therapy (principal)
CPT/HCPCS: 36415; 85025

== ENCOUNTER 2025-06-12 16:19 | Outpatient (REF) | payer MEDICARE, MEDICAID, SELFPAY ==
[2025-06-12 16:41] LABS: Hematocrit* 46.1 % (37.0-53.0); Hemoglobin* 16.1 gm/dL (13.5-17.5); Immature Granulocytes Abs Auto 0.13 K/uL (0.00-0.30); Immature Granulocytes Pct Auto 1.9 %; Lymphocytes Absolute Auto 2.13 K/uL (0.90-2.90); Mean Corpuscular HGB Conc 35 gm/dL (32-36); Mean Corpuscular Hemoglobin 32 pg (26-34); Mean Corpuscular Volume 92 fL (80-100); RDW Coefficient of Variation % 11.9 % (11.5-15.5); Red Blood Count* 5.03 m/uL (4.30-5.90); White Blood Count* 6.78 K/uL (4.50-11.00)
[2025-06-12 16:43] LABS: Slide Review Reflex No
[2025-06-12 16:53] LABS: Alanine Aminotransferase* 23 U/L (4-50); Aspartate Amino Transferase* 30 U/L (12-35)
--- OUTSIDE RECORDS SUMMARY | 2025-06-13 00:14 | XMS_ITS | Encounter Summary ---
Author Organization [facility] Address [address] [place] [address] Care Team Providers Care Merchandising Internship Name Role Phone Elsewhere, Pcp Primary Care Provider Ron e Encounter Details Date Type Department Care Team (Late st Contact Info) Description 05/12/2014 Historical Ophthalmology [facility] Blas Claros Jr., M.D. [address] [id number] Social History Tobacco Use Types Packs/Day Years Used Date Smoking Tobacco: Never Assessed Sex and Gender Information Value Date Recorded Sex Assigned at Not on file Legal Sex Male 7:44 PM SAWMILL [employer] Gender Identity Not on file Sexual Orientation Not on file documented as of this encounter Progress Notes * Blas Claros M.D. - 05/12/2014 3:08 PM CDT Eye General CHIEF COMPLAINT complete eye exam HISTORY OF PRESENT ILLNESS Pt needs new glasses Scratched the glasses that he has IMPRESSION / REPORT / PLAN A) Hyperopia OU, doing well P) New MR rto 1 year CDM Reports - EYEGEN Id: [id number] Status: Fnl documented in this encounter Plan of Treatment Not on file documented as of this encounter Visit Diagnoses Not on filedocumented in this encounter Additional Health Concerns Infection Onset Date Last Indicated Resolved Time COVID19 Pending 01/21/2024 01/21/2024 01/21/2024 6 :08 PM CDT documented as of this encounter Care Teams Merchandising Internship Relationship Specialty Start Date End Date Elsewhere, Pcp PCP - General 07/05/21 documented as of this encounter
--- OUTSIDE RECORDS SUMMARY | 2025-06-13 00:16 | XMS_ITS | Clinical Summary ---
Author Organization [facility] Address [address] [place] [id number] Care Team Providers Care Senior Strategy Analyst Name Role Phone Clinic, [facility] Primary Care Provider Allergies Active Allergy Reactions Criticality Noted Date Comments Tramadol 08/24/2011 Medications adapalene (DIFFERIN) 0.1 % gel Apply 0.5 inches topically daily. Apply after bath Active fluticasone (FLONASE) 50 MCG/ACT nasal spray [place] 1 spray into both nostrils daily as needed Active benztropine (COGENTIN) 1 MG tablet Take 1 mg by mouth 3 times daily 0700, 1500, 1999 Active clozapine (CLOZARIL) 100 MG tabletIndications :PDD (pervasive developmental disorder),Aggress bacilio behavior Take 100 mg by mouth 2 times daily 0700 and 1500 09/06/19 12 Active clozapine (CLOZARIL) 100 MG tabletIndications :PDD (pervasive developmental disorder),Aggress bacilio behavior Take 2.5 tablets by mouth At Bedtime. 09/06/19 12 Active divalproex sodium delayed-release (DEPAKOTE) [address] tablet Take 250 mg by mouth daily Active divalproex sodium delayed-release (DEPAKOTE) [address] tablet Take 1,000 mg by mouth 2 times daily Active docusate sodium (DSS) 100 MG capsule Take 100 mg by mouth 2 times daily 06/29/20 23 Active Mouthwashes (LISTERINE) LIQD Take 20 mLs by mouth every morning Swish and spit (or oral mouth swab) 20 ml to teeth and gums daily Active loratadine (CLARITIN) 10 MG tablet Take 1 tablet by mouth daily 06/29/20 23 Active polyethylene glycol (MIRALAX) 17 GM/Dose powder Take 17 g by mouth daily 04/04/20 23 Active propranolol (INDERAL) 40 MG tablet Take 40 mg by mouth 3 times daily 0700, 1500, and 2000 Active Emollient (EUCERIN DAILY HYDRATION) LOTN Externally apply topically 2 times daily Apply to body and legs twice daily after bath/shower Active Multiple Vitamin (TAB-A-JIMENEZ) TABS Take 1 tablet by mouth daily 06/29/20 23 Active acetaminophen (TYLENOL) 500 MG tablet Take 1,000 mg by mouth every 6 hours as needed for mild pain Active guaiFENesin (ROBITUSSIN) 20 mg/mL liquid Take 200 mg by mouth every 4 hours as needed for cough Active ibuprofen (ADVIL/MOTRIN) 200 MG tablet Take 400 mg by mouth every 4 hours as needed for pain Active loperamide (IMODIUM) 2 MG capsule Take 1-2 capsules by mouth daily as needed for diarrhea Active magnesium hydroxide (MOM) 2400 MG/10ML SUSP Take 30 mLs by mouth daily as needed for constipation Active clotrimazole (LOTRIMIN) 1 % external cream Apply topically 2 times daily Active mupirocin (BACTROBAN) 2 % external ointment Apply topically 3 times daily as needed Active sodium chloride (OCEAN) 0.65 % nasal spray [place] 1 spray into both nostrils every 2 hours as needed for congestion Active Active Problems Problem Noted Date Diagnosed Date Pneumonia 09/15/2023 Multifocal pneumonia 09/13/2023 MR (mental retardation) PDD (pervasive developmental disorder) Aggressive behavior ADD (attention deficit disorder with hyperactivi ty) Overview (03/27/2013): Problem list name updated by automated process. Provider to review and confirm Social History Tobacco Use Types Packs/Day Years Used Date Smoking Tobacco: Never Assessed Alcohol Use Standard Drinks/Week Comments No 0 (1 standard drink = 0.6 oz pur e alcohol) Adolescent Education Answer Date Record ed Getting School Help Needed Not on file 09/15 Sex and Gender Information Value Date Recorded Sex Assigned at Not on file Legal Sex Male 5:16 AM OFFICE DIRECTOR Gender Identity Not on file Sexual Orientation Not on file Last Filed Vital Signs Vital Sign Reading Time Taken Comments Blood Pressure 143/109 09/20/2023 8:00 AM OFFICE DIRECTOR Pulse 90 09/20/2023 7:00 AM OFFICE DIRECTOR Temperature 36.5 C (97.7 F) 09/20/2023 7:00 AM OFFICE DIRECTOR Respiratory Rate 18 09/20/2023 7:00 AM OFFICE DIRECTOR Oxygen Saturation 91% 09/20/2023 8:25 AM OFFICE DIRECTOR Inhaled Oxygen Concentration - - Weight 78 kg (171 lb 15.3 oz) 09/18/2023 5:30 AM OFFICE DIRECTOR Height 167.6 cm (5' 6) 09/13/2023 10:02 PM OFFICE DIRECTOR Body Mass Index 27.75 09/13/2023 10:02 PM OFFICE DIRECTOR Plan of Treatment Health Maintenance Due Date Last Done Comments ADVANCE CARE PLANNING 1987 ANNUAL REVIEW OF HM ORDERS 1987 HIV SCREENING 2002 HEPATITIS C SCREENING 2005 HEPATITIS B VACCINE (1 of 3 - 19+ 3-dose series) 2006 MEDICARE ANNUAL WELLNESS VISIT 11/22/2023 11/21/2022, 11/18/2021, 08/20/2020 PHQ-2 (once per calendar year) 2024 COVID-19 VACCINE ( season) 2025 07/13/2023, 06/14/2022, 07/22/2021, Additional history exists INFLUENZA VACCINE (#1) 2025 , 06/14/2022, 06/29/2021, Additional history exists DIABETES SCREENING 09/20/2026 09/20/2023, 0 09/19/2023, 09/17/2023, Additional history exists DTAP/TDAP/TD VACCINE (8 - Td or Tdap) 08/15/2029 08/15/2019, 02/23/2009, 06/21/1999, Additional history exists ZOSTER VACCINE (1 of 2) 2037 PNEUMOCOCCAL VACCINE: PEDIATRICS (0 to 5 YEARS) AND AT-RISK PATIENTS (6 to 49 YEARS) Aged Out 04/16/2013, 04/16/2013 No longer eligibl e based on patient's age to complete this topic HPV VACCINE (No Doses Required) Completed MENINGITIS VACCINE Aged Out No longer eligible based on patient's age to complete this topic Procedures Procedure Name Priority Date/Time Associated Diagnosis Comments GLUCOSE BY METER Routine 09/20/2023 2:08 AM OFFICE DIRECTOR from Last 3 Months or Most Recently Relevant to Health Maintenance Results * (ABNORMAL) Glucose by meter (09/20/2023 2:08 AM OFFICE DIRECTOR) GLUCOSE BY METER POCT 114(H) 70 - 99 mg/dL 09/20/2023 2:15 AM OFFICE DIRECTOR [facility] Blood, Capillary BLOOD SPECIMEN / Unknown 09/20/2023 2:08 AM OFFICE DIRECTOR 09/20/2023 2:15 AM OFFICE DIRECTOR us Lenard Gill MD LAB - BEAKER POCT Final R esult [facility] [address] [address] [place] [address], [facility] [phone] from Last 3 Months or Most Recently Relevant to Health Maintenance Insurance [place] Advance Directives For more information, please contact: [phone] Documents on File Type Date Recorded Patient Training And Development Manager Expl anation Advance Directives and Living Will 09/14/2023 Guardianship Service of [facility] (GUARDIAN-SEE ACP TAB/SCANNED LIST FOR AUTHORIZED STAFF) Legal Guardianship 01/26/2023 (original order 02/13/2009) * Full Code (Latest Code Status on File) Date Activated Date Inactivated Comments 09/13/2023 7:21 PM 09/20/2023 3:48 PM All basic an d advanced life-sustaining interventions are performed as appropriate Question Answer Comments Code status determined by: AD/POLST (patient dec ision maker unavailable) * Full Code Date Activated Date Inactivated Comments 08/24/2011 9:27 PM 09/07/2011 2:12 PM Care Teams Senior Strategy Analyst Relationship Specialty Start Date End Date [facility] [place] [id number] PCP - General 08/24/11
--- OUTSIDE RECORDS SUMMARY | 2025-06-13 00:16 | XMS_ITS | Clinical Summary ---
Author Organization [facility] Address [address] [place] [address] Care Team Providers Care Petroleum Sampler Name Role Phone Elsewhere, Pcp Primary Care Provider Unavailabl e Source Comments Patient records contain information from all sites at [facility]. For routine questions regarding patient records, call [phone] during business hours, M-F 8:00 AM - 5:00 PM Central Time. Record requests for emergency care only can be directed to [phone] at any time.[facility] Allergies Active Allergy Reactions Criticality Noted Date Comments Tramadol Rash 01/22/2024 Medications docusate sodium (COLACE) 100 mg capsule Take 1 capsule by mouth 2 (two) times a day. 7 Active benztropine (COGENTIN) 1 mg tablet Take 1 mg by mouth 3 (three) times a day. Active cloZAPine (CLOZARIL) 100 mg tablet Take 100mg at 7am, 100mg at 3pm, and 250mg at 8pm. Active divalproex (DEPAKOTE ER) 500 mg 24 hr tablet Take 1,000 mg by mouth 2 (two) times a day. 1000mg at 7am and 8pm Active divalproex (DEPAKOTE ER) 250 mg 24 hr tablet Take 250 mg by mouth daily. At 3pm Active fluticasone propionate (FLONASE) 50 mcg/actuation nasal spray Administer 1 spray into each nostril daily. Active haloperidoL (HALDOL) 10 mg tablet Take 10 mg by mouth 2 (two) times a day as needed. Active propranoloL (INDERAL) 40 mg tablet Take 40 mg by mouth every 8 (eight) hours. Active polyethylene glycol (MIRALAX) 17 gram powder packet Take 17 g by mouth daily. Dissolve each 17 g dose in 240 mLs (8 ounces) of beverage. Active multivit with calcium,iron,mi n (TAB A JIMENEZ ORAL) Take 1 tablet by mouth daily. Active benzonatate (TESSALON PERLES) 100 mg capsule Take 1 capsule (100 mg total) by mouth 3 (three) times a day as needed for cough. 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 Provider to review and confirm Immunizations Immunization Administration Dates Next Due DTP 10/25/1989,1987 DTaP, Unspecified 06/21/1999,05/15/1993 HepB, Unspecified 08/11/2006,03/24/2006,02/10/20 06 Influenza, Seasonal, Injectable 07/14/2003,07/11,07/05/2001,06/21/1999 Influenza, Unspecified 07/07/2011,07/02/2010 MMR 06/21/1999,10/25/1989 OPV, Trivalent 05/15/1993,10/25/1989,1987 OPV, Unspecified 06/21/1999 Td, (Adult) Unspecified 03/15/1994 Tdap 02/23/2009,02/23/2009 TAY 06/21/1999 Social History Tobacco Use Types Packs/Day Years Used Date Smoking Tobacco: Never [facility] [employer] Answer Date Recorded In the past 12 months has th e [employer], gas, oil, or water [employer] threatened to shut off services in your home? Patient unable to answer 01/22/2024 Humiliation, Afraid, Rape, a nd Kick questionnaire Answer Date Recorded Within the last year, have y ou been afraid of your partner or ex-partner? Patient unable to answer 01/22/2024 Within the last year, have y ou been humiliated or emotionally abused in other ways by your partner or ex-partner? Patient unable to answer 01/22/2024 Within the last year, have y ou been kicked, hit, slapped, or otherwise physically hurt by your partner or ex-partner? Patient unable to answer 01/22/2024 Within the last year, have y ou been raped or forced to have any kind of sexual activity by your partner or ex-partner? Patient unable to answer 01/22/2024 Hunger Vital Sign Answer Date Recorded Within the past 12 months, y ou worried that your food would run out before you got the money to buy more. Patient unable to answer 01/22/2024 Within the past 12 months, t he food you bought just didn't last and you didn't have money to get more. Patient unable to answer 01/22/2024 PRAPARE - Transportation Answer Date Re corded In the past 12 months, has l ack of transportation kept you from medical appointments or from getting medications? Patient unable to answer 01/22/2024 In the past 12 months, has l ack of transportation kept you from meetings, work, or from getting things needed for daily living? Patient unable to answer 01/22/2024 Housing Stability Answer Date Recorded What is your living situation today? Patient jai ble to answer 01/22/2024 Sex and Gender Information Value Date Recorded Sex Assigned at Not on file Legal Sex Male 7:44 PM CLIENT SERVICE AND CONSULTING MANAGER Gender Identity Not on file Sexual Orientation Not on file Last Filed Vital Signs Vital Sign Reading Time Taken Comments Blood Pressure 108/77 01/23/2024 12:45 PM CDT Pulse 94 01/23/2024 12:45 PM CDT Temperature 36.6 C (97.9 F) 01/23/2024 12:45 PM CDT Respiratory Rate 25 01/23/2024 8:00 AM CDT Oxygen Saturation 99% 01/23/2024 12:45 PM CDT Inhaled Oxygen Concentration - - Weight 73.5 kg (162 lb 0.6 oz) 01/22/2024 8:00 A M CDT Height 166 cm (5' 5.35) 01/21/2024 4:00 PM CDT Body Mass Index 26.67 01/21/2024 4:00 PM CDT Plan of Treatment Health Maintenance Due Date Last Done Comments HIV Screening 1987 Hepatitis C Screening 1987 HPV Vaccines (1 - 3-dose SCDM series) 2014 Depression Screening (Annual PHQ-2) 09/04/2024 Glucose Test for Med Monitoring 02/07/2025 02/08/2024, 01/23/2024, 01/22/2024, Additional history exists COVID-19 Vaccine ( season) 2025 07/13/2023, 06/14/2022, 07/22/2021, Additional history exists Influenza Vaccine (#1) 2025 , 07/13/2023, 06/14/2022, Additional history exists Lipid (Cholesterol) Screening 12/03/2027 12/02/2022, 12/02/2021, 03/17/2021, Additional history exists DTaP,Tdap,and Td Vaccines (9 - Td or Tdap) 08/15/2029 08/15/2019, 02/23/2009, 02/23/2009, Additional history exists IPV Vaccines Completed 06/21/1999, 05/05, 10/25/1989, Additional history exists Hepatitis B Vaccines Completed 08/11/2006, 03/24/2006, 02/09/2006 Pneumococcal vaccine (0-49 years) Aged Out 04/16/2013, 04/16/2013 No longer eligibl e based on patient's age to complete this topic Procedures Procedure Name Priority Date/Time Associated Diagnosis Comments BASIC METABOLIC PANEL, S/P Routine 01/23/2024 9:27 AM CDT from Last 3 Months or Most Recently Relevant to Health Maintenance Results * (ABNORMAL) Basic Metabolic Panel (01/23/2024 9:27 AM CDT) Potassium, S 4.1 3.6 - 5.2 mmol/L 01/23/2024 10:51 AM CDT DTL Sodium, S 144 135 - 145 mmol/L 01/23/2024 10:51 AM CDT DTL Chloride, S 108(H) 98 - 107 mmol/L 01/23/2024 10:51 AM CDT DTL Bicarbonate, S 26 22 - 29 mmol/L 01/23/2024 10:51 AM CDT DTL Anion Gap 10 7 - 15 01/23/2024 10:51 AM CDT DTL BUN (Blood Urea Nitrogen), S 13 8 - 24 mg/dL 01/23/2024 10:51 AM CDT DTL Creatinine 0.78 0.74 - 1.35 mg/dL 01/23/2024 10:51 AM CDT DTL Estimated GFR (eGFR) >90 >=60 mL/min/BSA 01/23/2024 10:51 AM CDT DTL Comment: Estimated GFR calculated using the 2020 CKD_EPI creatinine equation. Calcium, Total, S 9.1 8.6 - 10.0 mg/dL 01/23/2024 10:51 AM CDT DTL Glucose, S 133 70 - 140 mg/dL 01/23/2024 10:51 AM CDT DTL Blood (Blood, Venous) 01/23/2024 9:27 AM CDT 01/23/2024 10:32 AM CDT Armond Mcmullen M.D. LAB BLOOD ADD-ON Final Result [facility] [address] [place] [address], [facility] [address] [place] [address] from Last 3 Months or Most Recently Relevant to Health Maintenance Insurance [place] [address] MEDICARE Advance Directives For more information, please contact: [phone] * Full Code (Latest Code Status on File) Date Activated Date Inactivated Comments 01/21/2024 4:02 PM 01/23/2024 3:16 PM Question Answer Comments Full Code: Not Discussed Due to: Patient does not have the capaci ty intubated Care Teams Petroleum Sampler Relationship Specialty Start Date End Date Elsewhere, Pcp PCP - General 07/05/21
--- OUTSIDE RECORDS SUMMARY | 2025-06-13 00:16 | XMS_ITS | Clinical Summary ---
Author Organization [facility] Address [address] [place] [address] Care Team Providers Care Oral Surgeon Name Role Phone Viri Conrad PODOPEDIATRICIAN Unavailable [phone] Neptali Easley MD Primary Care Provider Allergies Active Allergy Reactions Criticality Noted Date Comments Tramadol *Unknown 09/29/2011 Medications haloperidol (HALDOL) 5 mg tablet Take 10 mg by mouth every 12 hours if needed. 0 2 Active cloZAPine (CLOZARIL) 100 mg tablet Take by mouth. Take one tablet (100 mg) 3 times daily at 7 AM, 11 AM, and 3 PM. Take 2 tablets (200 mg) every day at bedtime (along with one 25 mg tablet for total bedtime dose of 225 mg). Active cloZAPine (CLOZARIL) 25 mg tablet Take 25 mg by mouth at bedtime. Take along with two 100 mg tablets for total bedtime dose of 225 mg. Active chlorhexidine (PERIDEX) 0.12 % solution Swish and spit 5-10 mL by mouth 2 times daily. Rinse or brush teeth and gums with 5-10 mL for 60 seconds twice daily. Nothing by mouth for 30 minutes following. Active mupirocin 2% topical (BACTROBAN OINTMENT) ointmentIndicati ons:acne Apply topically to affected area(s) 3 times daily. Three times per day for 5 days per acne episode Indications: acne Active dextromethorphan -guaiFENesin (ROBITUSSIN DM) 10-100 mg/5 mL liquid Take 10 mL by mouth every 4 hours if needed for Cough. 120 mL 0 5 Active propranolol (INDERAL) 40 mg tabletIndication s:Anxiety state 1 tablet 3 times daily. 0 6 Active benztropine (COGENTIN) 1 mg tabletIndication s:Drooling Take 1 tablet by mouth 3 times daily. 90 tablet 11 6 Active sodium phosphates (FLEETS) enemaIndications :Chronic constipation Insert 133 mL rectally once daily. follow package directions 3 Enema 2 6 Active divalproex (DEPAKOTE) 500 mg Delayed-Release tablet 500 mg tablet in AM, and at HS 0 0 Active divalproex (DEPAKOTE) 250 mg Delayed-Release tablet 0 Active fluticasone (50 mcg per actuation) nasal solution (FLONASE)Indicat ions:Environment al allergies Inhale 1 [place] to both nostrils once daily. daily as needed. 48 mL 2 3 Active benzonatate (TESSALON) 100 mg capsule Take 100 mg by mouth 3 times daily if needed. 4 Active guaiFENesin 100 mg/5 mL liquid Take 200 mg by mouth every 4 hours if needed for Expectoration. Active albuterol 0.083% (2.5 mg/3 mL) neb solutionIndicati ons:SOB (shortness of breath),Recurren t aspiration pneumonia (HC) Inhale 3 mL (2.5 mg) via a nebulizer every 8 hours if needed for Shortness of Breath 1st choice or Cough 2nd choice. 180 mL 5 4 Active NebulizerIndicat ions:SOB (shortness of breath),Recurren t aspiration pneumonia (HC) Nebulizer machine, disposable neb kit x 4, reuseable neb kit x 1, mask (A7015) x 1/month, hand held mouth piece (A7003) x 2/month,filters x 1, tubing. Frequency of use: daily; Medication: albuterol Length of need: 99 months 1 Each 11 4 Active medication order composerIndicati ons:Recurrent aspiration pneumonia (HC) Positional wedge for sleeping in upright position 4 Active polyethylene glycoL (Gavilax) 17 gram/scoop powderIndication s:Chronic constipation Mix 1 scoop (17 g) in liquid then take by mouth once daily. MIX 17 GRAMS IN 4-8 OUNCES OF WATER OR JUICE AND DRINK DAILY IN WATER/JUICE TEA OR COFFEE 1530 g 2 4 Active glycopyrrolate 1 mg tablet Take 1 mg by mouth two times daily. 5 Active docusate 100 mg capsuleIndicatio ns:Constipation, unspecified constipation type TAKE 1 CAPSULE BY MOUTH TWICE DAILY FOR CONSTIPATION 180 Capsule 2 5 Active loratadine 10 mg tabletIndication s:Environmental allergies TAKE 1 TABLET BY MOUTH DAILY 90 Tablet 2 5 Active multivitamin with folic acid 0.4 mg (Tab-A-Yosef)Julia cations:Health care maintenance TAKE 1 TABLET BY MOUTH DAILY 90 Tablet 2 5 Active Active Problems Problem Noted Date Diagnosed Date Overweight 11/25/2024 Developmental delay 12/01/2014 Generalized anxiety disorder 12/01/2014 ACP (advance care planning) 09/11/2012 Overview (09/11/2012): Patient has identified Health Care Agent(s): No formally completed HCD. Has legal guardian Kay Boyd [phone] Add Health Care Agents: No Patient has Advance Care Plan Documents (Health Care Directive, POLST): No, no HCD/legal guardian . Patient has identified Specific Treatment Preferences: No Specific limits to treatment preferences NOT identified: ASSUME FULL TREATMENT. Autism disorder 08/14/2012 Resolved Problems Problem Noted Date Diagnosed Date Resolved Date Elevated blood pressure read ing without diagnosis of hypertension 02/17/2023 11/25/2024 Acne vulgaris 09/18/2017 11/24/2023 Hypertriglyceridemia 06/28/2017 024 Diarrhea 09/26/2012 11/24/2023 Altered mental status 09/26/20122023 Parapneumonic effusion 09/12/201211/23 CAP (community acquired pneumonia) 09/12/2012 11/24/2023 Pleural effusion 09/10/2012 11/24/2023 Unspecified psychosis 08/14/20122023 Anxiety state, unspecified 08/14/2012 0 11/24/2023 Unspecified psychosis 08/14/20122012 Immunizations Immunization Administration Dates Next Due COVID-19 vaccine (Moderna 100mcg/0.5mL) PF, MDV 07/22/2021,10/28/2020,09/30/2020 DT (Age < 7 years) 03/15/1994 DTP 03/15/1994,10/25/1989,1987 DTaP 06/21/1999,05/15/1993 Hepatitis B, Unspecified 08/11/2006,03/24/2006,0 02/09/2006 INFLUENZA, IIV3 PF (AGE >= 6 MO) 06/26/2024 Influenza A (H1N1), Inactiva harmony (Age >=3 Years) 10/01/2009 Influenza Virus, Unspecified 06/20/2017,07/07/20 11 Influenza, IIV3 (Age 6-35 mos) 06/08/2016 Influenza, IIV3 (Age >=3 years) 06/25/20 18,06/18/2015,06/03/2012,2010,07/02/2010,07/22/2008,07/14/2003,1 09/10/2001,07/05/2001,06/21/1999 Influenza, IIV4 07/13/2023,06/14/2022,08/03/2019 Influenza, IIV4 (=>6mos) MDV 06/29/2021,06/08/20 20 MMR 06/21/1999,10/25/1989 Oral Polio Vaccine 06/21/1999, 3,10/25/1989,1986 Pneumococcal Conj 20-valent (Prevnar 20) 02/08/2024 Pneumococcal Poly,23-Valent (Pneumovax) 04/16/2013 Pneumococcal, Unspecified 04/16/2013 Td (Age >=7 Years) 03/15/1994 Tdap 08/15/2019,02/23/2009 Tuberculin (PPD) 09/11/2012 Varicella Vaccine 06/21/1999 Family History Medical History Relation Name Comments Diabetes Mother Relation Name Status Comments Mother Social History Tobacco Use Types Packs/Day Years Used Date Smoking Tobacco: Never Smokeless Tobacco: Never Tobacco Cessation:Counseling Given: No Alcohol Use Standard Drinks/Week Comments No 0 (1 standard drink = 0.6 oz pur e alcohol) PHQ-2 Answer Date Recorded PHQ-2 TOTAL SCORE 0 11/18/2021 Financial Resource Strain Answer Date R ecorded Difficulty of Paying Living Expenses Not on file 09/04/2021 Difficulty of Paying Living Expenses Not on file 09/04/2021 Interpersonal Safety Answer Date Record ed Are you being hit, kicked, p ushed or yelled at (see row info)? No 05/16/2024 Interpersonal Safety Abuse 12 - 18 Not on file 05/16/2024 Interpersonal Safety Ambulatory Vulnerability No t on file 05/16/2024 Sex and Gender Information Value Date Recorded Sex Assigned at Not on file Legal Sex Male 5:24 AM E[employer] Gender Identity Not on file Sexual Orientation Not on file Obstetrics History Last Filed Vital Signs Vital Sign Reading Time Taken Comments Blood Pressure 111/80 11/25/2024 2:45 PM CDT Pulse 86 11/25/2024 2:45 PM CDT Temperature 36.4 C (97.6 F) 05/16/2024 9:33 AM CDT Respiratory Rate 18 05/16/2024 9:33 AM CDT Oxygen Saturation 96% 11/25/2024 2:45 PM CDT Inhaled Oxygen Concentration - - Weight 76.7 kg (169 lb) 11/25/2024 2:45 PM CDT Height 162.1 cm (5' 3.82) 11/25/2024 2:45 PM CD T Body Mass Index 29.17 11/25/2024 2:45 PM CDT Plan of Treatment Upcoming Encounters Date Type Department Care Team (Late st Contact Info) Description 11/26/2025 3:20 PM CDT Office Visit [facility] [address] [place] [address] Neptali Easley MD [address] [place] [address] Health Maintenance Due Date Last Done Comments HPV series for age 9-45 (1 - 3-dose SCDM series) 2014 Depression screening for age 12+ 11/18/2022 11/18/2021, 08/21/2020, 08/20/2020, Additional history exists Influenza Vaccine (#1) 2025 , 07/13/2023, 06/14/2022, Additional history exists BMI (ht and wt on same day) for age 18+ 11/25/2025 11/25/2024, 04/17/2024, 11/24/2023, Additional history exists Lipids for age 35-44 12/03/2027 12/02/2022, 12/02/2021, 03/17/2021, Additional history exists Tetanus booster 08/15/2029 08/15/2019, 02/03, 03/15/1994 RSV vaccine for adults or (1 - 1-dose 75+ series) 2062 Hepatitis B series for 19+ Completed 08/11, 03/24/2006, 02/09/2006 HIV for age 15-65 Completed 12/02/2022 Hepatitis C screening for age 18-79 Completed 12/02/2022 Pneumococcal series for age 6-49 Aged Out 02/08/2024, 04/16/2013, 04/16/2013 No longer eligible based on patient's age to complete this topic COVID-19 vaccine series Completed 06/26/20, 07/13/2023, 06/14/2022, Additional history exists Procedures Procedure Name Priority Date/Time Associated Diagnosis Comments LC HIV-1/O/2, 4TH GENERATION Routine 12/02/2022 7:21 AM CDT Screening for HIV (human immunodeficiency virus) LC HCV ANTIBODY RFX TO QUANT PCR Routine 12/02/2022 7:21 AM CDT Need for hepatitis C screening test LC LIPID PANEL AND CHOL/HDL RATIO Routine 12/02/2022 7:21 AM CDT Lipid screening from Last 3 Months or Most Recently Relevant to Health Maintenance Results * (ABNORMAL) LC LIPID PANEL AND CHOL/HDL RATIO (12/02/2022 7:21 AM CDT) [facility] Cholesterol, Total 197 100 - 199 mg/dL 12/05/2022 2:07 PM CDT [facility] Triglycerides 264(H) 0 - 149 mg/dL 12/05/2022 2:07 PM CDT [facility] HDL Cholesterol 47 >39 mg/dL 2:07 PM CDT [facility] ([facility] VLDL Cholesterol Neville 45(H) 5 - 40 mg/dL 12/05/2022 2:07 PM CDT [facility] LDL Chol Calc (NIH) 105(H) 0 - 99 mg/dL 12/05/2022 2:07 PM CDT [facility] T. Chol/HDL Ratio 4.2 0.0 - 5.0 ratio 12/05/2022 2:07 PM CDT [facility] Comment: T. Chol/HDL Ratio Men Women 1/2 Avg.Risk 3.4 3.3 Avg.Risk 5.0 4.4 2X Avg.Risk 9.6 7.1 3X Avg.Risk 23.4 11.0 Blood BLOOD SPECIMEN / Unknown Venipuncture / Unknown 12/02/2022 7:21 AM CDT 12/02/2022 7:22 AM CDT Narrative [facility] - 12/05/2022 2:07 PM CDT Performed at: [address] [place] [id number] Diesel Dinkey Operator: Thanh Rodriguez MD, Phone: [phone] Neptali Easley MD SEND OUTS Final Result [facility] [address] [place] [id number], * LC HCV ANTIBODY RFX TO QUANT PCR (12/02/2022 7:21 AM CDT) [facility] HCV Ab Non Reactive Non Reactive 12/06/2022 10:06 PM CDT [facility] Blood BLOOD SPECIMEN / Unknown Venipuncture / Unknown 12/02/2022 7:21 AM CDT 12/02/2022 7:22 AM CDT [facility] ([facility]) - 12/06/2022 10:06 PM CDT Performed at: [address] [place] [id number] Diesel Dinkey Operator: Thanh Rodriguez MD, Phone: [phone] us Neptali Easley MD LABORATORY Final Result [facility]) [address] [place] [address] * HIV-1/O/2, 4TH GENERATION (12/02/2022 7:21 AM CDT) [facility] HIV Scr 4th Gen Non Reactive Non Reactive 12/06/2022 1:09 PM CDT [facility]) Comment: HIV Negative HIV-1/HIV-2 antibodies and HIV-1 p24 antigen were NOT detected. There is no laboratory evidence of HIV infection. Blood BLOOD SPECIMEN / Unknown Venipuncture / Unknown 12/02/2022 7:21 AM CDT 12/02/2022 7:22 AM CDT [facility] ([facility] - 12/06/2022 1:09 PM CDT Performed at: [address] [place] [id number] Diesel Dinkey Operator: Thanh Rodriguez MD, Phone: [phone] us Neptali Easley MD LABORATORY Final Result [facility] ([facility] [address] [place] [address] from Last 3 Months or Most Recently Relevant to Health Maintenance Insurance MEDICAID MEDICAID MEDICARE PB ONLY MEDICARE PART B HB ONLY MEDICARE PART A HB ONLY Advance Directives Documents on File Type Date Recorded Patient Hookman Abhishek HWANG 06/27/2022 * Full Code (Latest Code Status on File) Date Activated Date Inactivated Comments 12/01/2014 5:42 PM 12/04/2014 12:28 PM * Full Code Date Activated Date Inactivated Comments 09/26/2012 2:37 PM 10/01/2012 9:41 PM * Full Code Date Activated Date Inactivated Comments 09/10/2012 4:57 PM 09/24/2012 6:45 PM Care Teams Oral Surgeon Relationship Specialty Start Date End Date Neptali Easley MD [address] [place] [address] PCP - General Family Practice 01/24/23 Viri Conrad, PODOPEDIATRICIAN Psychiatry 05/07/15
[2025-06-15 11:09] LABS: Valproic Acid, Free 11 ug/mL (7-23); Valproic Acid, Percent Free 16 % (5-18); Valproic Acid, Total 69 ug/mL (50-125)
== END 2025-06-12 16:20 | disposition home or self-care (01) ==
LOC: NPINS 16:19
PROVIDERS: PCP Family Medicine; Visit Provider Nurse Practitioner Psychiatric/Mental Health
DX: Z51.81 Encounter for therapeutic drug level monitoring (principal); Z79.899 Other long term (current) drug therapy
CPT/HCPCS: 80164; 80165; 84450; 84460; 85025